=== PATIENT | male | born 1960 | race American Indian/Alaskan Native ===

== ENCOUNTER 2019-02-06 12:01 | Inpatient (IN) | payer MEDICAID ==
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
[2019-02-06] MEDS ORDERED: NORMODYNE IV ONE (12:30)
--- NOTE | 2019-02-06 12:54 | Cat Scan Report ---
EXAM: CT HEAD/BRAIN WO CON HISTORY: neuro deficits <6hrs or sx present upon awakening TECHNIQUE: Spiral axial CT images are obtained through the brain without the administration of intra venous contrast. CT DOSE LENGTH PRODUCT: 920.5 mGycm COMPARISON: None available. FINDINGS: There is a large chronic left anterior frontal lobe parenchymal infarction in the relatively small ch ronic right anterior frontal lobe parenchymal infarction. There is atherosclerotic disease of the car otid siphons. There are parenchymal lucencies within the white matter tracks of the centrum semiovale, consistent w ith chronic sequela of atherosclerotic microvascular ischemic disease. There is diffuse cerebral cortical atrophy. The centrum semiovale, basal ganglia, cerebellum, and bra instem are otherwise grossly unremarkable for a noncontrast CT scan. There is no acute intracranial hemorrhage, gross acute infarction, mass lesion, midline shift, or hydrocephalus seen. No extra-axia l mass or abnormal fluid collection noted. The calvarium is intact. The partially imaged paranasal sinuses, middle ear cavities and mastoid air cells are clear. IMPRESSION: 1. Chronic ischemic disease throughout the centrum semiovale, but no discernible acute infarction se en. Consider followup MRI with diffusion-weighted imaging to rule out occult acute infarction if clin ically warranted. 2. Atherosclerotic disease of the carotid siphons. 3. No skull fracture, intracranial hemorrhage, mass lesion, midline shift, or hydrocephalus seen. This document is electronically signed by Edilma Gutierres MD., February 06 2019 12:52:32 PM ET
[2019-02-06 13:51] LABS: Basophils % (Auto) 0.2 % (0.0-1.8); Hematocrit 45.7 % (35.5-45.6); Hemoglobin 15.5 gm/dl (11.8-15.2); Lymphocytes # (Auto) 1.6 K/mm3 (1.2-5.4); Lymphocytes % (Auto) 10.7 % (13.4-35.0); Mean Corpuscular HGB Conc 34 % (32-34); Mean Corpuscular Volume 89 fl (84-94); Monocytes # (Auto) 0.9 K/mm3 (0.0-0.8); Monocytes % (Auto) 5.7 % (0.0-7.3); Platelet Count 308 K/mm3 (140-440); Red Blood Count 5.17 M/mm3 (3.65-5.03); Red Cell Distribution Width 14.2 % (13.2-15.2)
[2019-02-06 13:58] LABS: INR 1.04 (0.87-1.13)
[2019-02-06 13:59] LABS: Partial Thromboplastin Time 31.6 Sec. (24.2-36.6); Thrombin Time 15.6 Sec. (15.1-19.6)
[2019-02-06 14:08] LABS: BUN/Creatinine Ratio 13; Blood Urea Nitrogen 12 mg/dL (9-20); Calcium 9.7 mg/dL (8.4-10.2); Hemolysis Index 11
[2019-02-06] MEDS ORDERED: APRESOLINE IV ONE (14:19)
[2019-02-06] MEDS ORDERED: TYLENOL PO ONE (15:26)
[2019-02-06] MEDS ORDERED: APRESOLINE IV PRN (15:41)
[2019-02-06] MEDS ORDERED: SODIUM CHLORIDE FLUSH SYRINGE 10 ML IV PRN (18:39)
[2019-02-06] MEDS ORDERED: ZOFRAN IV PRN (18:39)
[2019-02-06] MEDS ORDERED: TYLENOL PO PRN (18:39)
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
[2019-02-06] MEDS ORDERED: MORPHINE IV PRN (18:40)
[2019-02-06] MEDS ORDERED: IBUPROFEN PO PRN (18:40)
[2019-02-06] MEDS ORDERED: NACL 0.45% 1000 ML 1,000 ML IV SCH (19:00)
[2019-02-06] MEDS: COZAAR PO SCH (20:09)
[2019-02-06] MEDS: SODIUM CHLORIDE FLUSH SYRINGE 10 ML IV SCH (21:56)
[2019-02-06] MEDS: KEPPRA 750 MG in D5W 100 ML IV SCH (21:56)
[2019-02-06] MEDS: PEPCID PO SCH (22:00)
[2019-02-06] MEDS ORDERED: NACL 0.45% 500 ML IV SCH (23:00)
[2019-02-07] MEDS: COREG PO SCH ×3 (00:32→22:55)
[2019-02-07 06:22] LABS: Basophils % (Auto) 0.4 % (0.0-1.8); Eosinophils % (Auto) 0.2 % (0.0-4.3); Hematocrit 42.3 % (35.5-45.6); Hemoglobin 14.3 gm/dl (11.8-15.2); Lymphocytes # (Auto) 1.2 K/mm3 (1.2-5.4); Lymphocytes % (Auto) 11.9 % (13.4-35.0); Mean Corpuscular HGB Conc 34 % (32-34); Mean Corpuscular Volume 89 fl (84-94); Monocytes # (Auto) 0.9 K/mm3 (0.0-0.8); Monocytes % (Auto) 9.1 % (0.0-7.3); Platelet Count 269 K/mm3 (140-440); Red Blood Count 4.74 M/mm3 (3.65-5.03); Red Cell Distribution Width 14.5 % (13.2-15.2)
[2019-02-07 06:44] LABS: Alanine Aminotransferase 18 units/L (7-56); Albumin 4.1 g/dL (3.9-5); BUN/Creatinine Ratio 10; Blood Urea Nitrogen 14 mg/dL (9-20); Calcium 9.2 mg/dL (8.4-10.2); Hemolysis Index 6
[2019-02-07] MEDS: KEPPRA 750 MG in D5W 100 ML IV SCH (09:06)
[2019-02-07] MEDS ORDERED: NORVASC PO SCH (10:00)
[2019-02-07] MEDS: COZAAR PO SCH (10:21)
[2019-02-07] MEDS: PEPCID PO SCH ×2 (10:21→22:57)
[2019-02-07] MEDS: HABITROL TD SCH (10:22)
[2019-02-07] MEDS: SODIUM CHLORIDE FLUSH SYRINGE 10 ML IV SCH ×2 (10:23→22:57)
[2019-02-07] MEDS ORDERED: AFLURIA QUAD 2018-2019 SYRINGE IM ONE (12:00)
--- NOTE | 2019-02-07 14:47 | Progress Note ---
Assessment and Plan Assessment and plan: Encephalopathy with confusion May be secondary to hypertensive encephalopathy neuro following Hypertensive encephalopathy BP 196/96 on admission neuro checks Q4h Hypertensive emergency Now on Norvasc, Coreg, hydralazine, Cozaar Monitor BP Seizure disorder. resume kegurdeepra No witnessed seizures Neurology following Medical non-compliance He has not been taking his medications Leukocytosis,resolved Will check UA, Urine Culture, blood culture, Chest x ray Glucoma Resume home med Full code status Discussed with family at bedside. History Interval history: Altered mental status confusion Hospitalist Physical - Physical exam Narrative exam: Gen: Not in acute distress, lying in bed, HEENT:Normocephalic, atraumatic Neck: supple, no JVD Heart: S1 and S2 reg, no murmurs, rubs or gallop Lungs: Clear, no crackles, no wheeze Abd: soft, non tender, non distended, normal BS Ext: No edema, no clubbing, no cyanosis, Neuro: Awake, alert, confused, moves all ext, non focal - Constitutional Vitals: Temp Pulse Resp BP Pulse Ox 98.5 F 75 18 125/74 95 02/07/19 07:41 02/07/19 10:22 02/07/19 07:41 02/07/19 10:22 02/07/19 11:01 General appearance: Present: no acute distress Results - Labs CBC & Chem 7: 02/07/19 05:31 02/07/19 05:31 Labs: Laboratory Last Values WBC 9.8 K/mm3 (4.5-11.0) 02/07/19 05:31 RBC 4.74 M/mm3 (3.65-5.03) 02/07/19 05:31 Hgb 14.3 gm/dl (11.8-15.2) 02/07/19 05:31 Hct 42.3 % (35.5-45.6) 02/07/19 05:31 MCV 89 fl (84-94) 02/07/19 05:31 MCH 30 pg (28-32) 02/07/19 05:31 MCHC 34 % (32-34) 02/07/19 05:31 RDW 14.5 % (13.2-15.2) 02/07/19 05:31 Plt Count 269 K/mm3 (140-440) 02/07/19 05:31 Lymph % (Auto) 11.9 % (13.4-35.0) L 02/07/19 05:31 [place] % (Auto) 9.1 % (0.0-7.3) H 02/07/19 05:31 Eos % (Auto) 0.2 % (0.0-4.3) 02/07/19 05:31 Baso % (Auto) 0.4 % (0.0-1.8) 02/07/19 05:31 Lymph # 1.2 K/mm3 (1.2-5.4) 02/07/19 05:31 [place] # 0.9 K/mm3 (0.0-0.8) H 02/07/19 05:31 Eos # 0.0 K/mm3 (0.0-0.4) 02/07/19 05:31 Baso # 0.0 K/mm3 (0.0-0.1) 02/07/19 05:31 Seg Neutrophils % 78.4 % (40.0-70.0) H 02/07/19 05:31 Seg Neutrophils # 7.7 K/mm3 (1.8-7.7) 02/07/19 05:31 PT 14.2 Sec. (12.2-14.9) 02/06/19 13:16 INR 1.04 (0.87-1.13) 02/06/19 13:16 APTT 31.6 Sec. (24.2-36.6) 02/06/19 13:16 15.6 Sec. (15.1-19.6) 02/06/19 13:16 Sodium 140 mmol/L (137-145) 02/07/19 05:31 Potassium 3.8 mmol/L (3.6-5.0) 02/07/19 05:31 Chloride 96.9 mmol/L (98-107) L 02/07/19 05:31 Carbon Dioxide 28 mmol/L (22-30) 02/07/19 05:31 19 mmol/L 02/07/19 05:31 BUN 14 mg/dL (9-20) 02/07/19 05:31 1.4 mg/dL (0.8-1.5) D 02/07/19 05:31 Estimated GFR > 60 ml/min 02/07/19 05:31 10 % 02/07/19 05:31 Glucose 103 mg/dL (75-100) H 02/07/19 05:31 POC Glucose 91 (70-105) 02/07/19 08:34 5.5 % (4-6) 02/06/19 13:16 Calcium 9.2 mg/dL (8.4-10.2) 02/07/19 05:31 0.70 mg/dL (0.1-1.2) 02/07/19 05:31 AST 64 units/L (5-40) H 02/07/19 05:31 ALT 18 units/L (7-56) 02/07/19 05:31 84 units/L (35-129) 02/07/19 05:31 0.019 ng/mL (0.00-0.029) 02/06/19 13:16 6.6 g/dL (6.3-8.2) 02/07/19 05:31 4.1 g/dL (3.9-5) 02/07/19 05:31 1.6 % 02/07/19 05:31 Active Medications - Current Medications Current Medications: Generic Name Dose Route Start Last Admin Trade Name Freq PRN Reason Stop Dose Admin Acetaminophen 650 mg 02/06/19 18:39 Tylenol PO Q4H PRN Pain MILD(1-3)/Fever >100.5/KAM Amlodipine Besylate 10 mg 02/07/19 10:00 02/07/19 10:22 Norvasc PO 10 mg QDAY MARYELLEN Administration Carvedilol 12.5 mg 02/06/19 23:00 02/07/19 10:22 Coreg PO 12.5 mg BID MARYELLEN Administration Famotidine 20 mg 02/06/19 22:00 02/07/19 10:21 Pepcid PO 20 mg BID MARYELLEN Administration Hydralazine HCl 10 mg 02/06/19 15:41 02/06/19 20:10 Apresoline IV 10 mg Q3H PRN Administration systolic over 160/100 Levetiracetam 750 mg/ Dextrose 107.5 mls @ 400 mls/hr 02/06/19 20:00 02/07/19 09:06 IV 400 mls/hr Q12H MARYELLEN Administration Sodium Chloride 500 mls @ 50 mls/hr 02/06/19 23:00 Nacl 0.45% IV DIRECT MARYELLEN Ibuprofen 600 mg 02/06/19 18:40 Ibuprofen PO Q6H PRN Pain, Mild (1-3) Losartan Potassium 100 mg 02/06/19 19:00 02/07/19 10:21 Cozaar PO 100 mg QDAY MARYELLEN Administration Morphine Sulfate 2 mg 02/06/19 18:40 Morphine IV Q4H PRN Pain, Moderate (4-6) Nicotine 14 mg 02/07/19 10:00 02/07/19 10:22 Habitrol TD 14 mg QDAY MARYELLEN Administration Ondansetron HCl 4 mg 02/06/19 18:39 Zofran IV Q8H PRN Nausea And Vomiting Sodium Chloride 10 ml 02/06/19 22:00 02/07/19 10:23 Sodium Chloride Flush Syringe 10 Ml IV 10 ml BID MARYELLEN Administration Sodium Chloride 10 ml 02/06/19 18:39 Sodium Chloride Flush Syringe 10 Ml IV PRN PRN LINE FLUSH
--- NOTE | 2019-02-07 15:58 | Magnetic Resonance Report ---
MRI BRAIN WITHOUT CONTRAST: 02/06/19 15:12:00 CLINICAL: Altered mental status. COMPARISON: CT head 02/06/19 TECHNIQUE: Axial diffusion, T1, T2, gradient echo T2*, coronal and axial FLAIR and sagittal T1 sequences on a 1.5 [place] magnet. FINDINGS: Global cortical atrophy with enlargement of sulci and ventricles. Bilateral frontal and temporal lobe sulci are enlarged to a greater degree. No restricted diffusion. Focal left frontal lobe encephalomalacia measures 1.5 x 1.5 cm. Hemosiderin deposition at the margins of the encephalomalacia and along the dura of the left frontal lobe are evident on the gradient echo sequence. No chronic microbleeds. No acute or subacute hemorrhage. No mass or mass effect. No edema or extra-axial collection. Normal pituitary and optic chiasm. The brainstem is normal. 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 There is also evidence of left cerebellar atrophy. The major vascular flow voids are intact. However, no right vertebral artery flow-void. Mild right ethmoid sinusitis. The orbits, and soft tissues are normal. Normal calvarium and skull base. IMPRESSION: 1. No evidence of acute/subacute infarct or hemorrhage. 2. Global cortical atrophy with more pronounced atrophy of the frontal and temporal lobes. 3. Left frontal lobe encephalomalacia with hemosiderin at its margin suggests a remote hemorrhage. 4. 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 5. A chronic left cerebellar infarct.
--- NOTE | 2019-02-07 16:01 | Magnetic Resonance Report ---
MRA HEAD WITHOUT CONTRAST: 02/06/19 15:12:00 CLINICAL: Altered metal status. TECHNIQUE: Axial 3-D [id number] MR angiography of the skull valley of [place] with review of axial source images. FINDINGS: Intact skull [place] of [place] with no aneurysm, high-grade stenosis or occlusion of the ICAs, ACAs, MCAs or leather shaver. Intact anterior communicating and right posterior communicating arteries. Chronic occlusion of the right vertebral artery. IMPRESSION: Chronic occlusion of the right vertebral artery and otherwise normal study.
--- NOTE | 2019-02-07 17:11 | Consultation ---
Medications and Allergies Allergies Allergy/AdvReac Type Severity Reaction Status Date / Time No Known Allergies Allergy Unverified 03/05/15 10:54 Home Medications Medication Instructions Recorded Confirmed Last Taken Type Travoprost (Benzalkonium) 2.5 ml OP 03/05/15 02/07/19 03/05/15 23:30 History [Travoprost 0.004% Eye Drop] levETIRAcetam [Keppra] 1,000 mg PO BID 03/05/15 02/07/19 03/06/15 06:00 History Cyproheptadine [Periactin] 4 mg PO DAILY 02/07/19 02/07/19 Unknown History Folic Acid [Folvite] 1 mg PO QDAY 02/07/19 02/07/19 Unknown History Phenytoin Sodium Extended 300 mg PO BID 02/07/19 02/07/19 Unknown History Pravastatin [Pravachol] 40 mg PO QHS 02/07/19 02/07/19 Unknown History Sertraline [Zoloft] 50 mg PO QHS 02/07/19 02/07/19 Unknown History amLODIPine [Norvasc] 10 mg PO DAILY 02/07/19 02/07/19 Unknown History Active Meds: Active Medications Acetaminophen (Tylenol) 650 mg PO Q4H PRN PRN Reason: Pain MILD(1-3)/Fever >100.5/KAM Amlodipine Besylate (Norvasc) 10 mg PO QDAY [facility] Last Admin: 02/07/19 10:22 Dose: 10 mg Documented by: Carvedilol (Coreg) 12.5 mg PO BID [facility] Last Admin: 02/07/19 10:22 Dose: 12.5 mg Documented by: Famotidine (Pepcid) 20 mg PO BID [facility] Last Admin: 02/07/19 10:21 Dose: 20 mg Documented by: Hydralazine HCl (Apresoline) 10 mg IV Q3H PRN PRN Reason: systolic over 160/100 Last Admin: 02/06/19 20:10 Dose: 10 mg Documented by: Levetiracetam 750 mg/ Dextrose 107.5 mls @ 400 mls/hr IV Q12H [facility] Last Admin: 02/07/19 09:06 Dose: 400 mls/hr Documented by: Sodium Chloride (Nacl 0.45%) 500 mls @ 50 mls/hr IV DIRECT [facility] Ibuprofen (Ibuprofen) 600 mg PO Q6H PRN PRN Reason: Pain, Mild (1-3) Losartan Potassium (Cozaar) 100 mg PO QDAY [facility] Last Admin: 02/07/19 10:21 Dose: 100 mg Documented by: Morphine Sulfate (Morphine) 2 mg IV Q4H PRN PRN Reason: Pain, Moderate (4-6) Nicotine (Habitrol) 14 mg TD QDAY [facility] Last Admin: 02/07/19 10:22 Dose: 14 mg Documented by: Ondansetron HCl (Zofran) 4 mg IV Q8H PRN PRN Reason: Nausea And Vomiting Sodium Chloride (Sodium Chloride Flush Syringe 10 Ml) 10 ml IV BID [facility] Last Admin: 02/07/19 10:23 Dose: 10 ml Documented by: Sodium Chloride (Sodium Chloride Flush Syringe 10 Ml) 10 ml IV PRN PRN PRN Reason: LINE FLUSH Physical Examination - Vital Signs Vital Signs: Vital Signs Temp Pulse Resp BP Pulse Ox 98.7 F 103 H 18 223/122 99 02/06/19 12:05 02/06/19 12:05 02/06/19 12:05 02/06/19 12:05 02/06/19 12:05 Results - Laboratory Findings CBC and BMP: 02/07/19 05:31 02/07/19 05:31 Abnormal Lab Findings: Abnormal Labs 02/06/19 02/06/19 02/06/19 12:19 13:11 13:16 WBC 14.8 H RBC 5.17 H Hgb 15.5 H Hct 45.7 H Lymph % (Auto) 10.7 L [place] % (Auto) [place] # 0.9 H Seg Neutrophils % 83.4 H Seg Neutrophils # 12.4 H Chloride Glucose POC Glucose 115 H 132 H AST 02/06/19 02/07/19 02/07/19 13:16 05:31 05:31 WBC RBC Hgb Hct Lymph % (Auto) 11.9 L [place] % (Auto) 9.1 H [place] # 0.9 H Seg Neutrophils % 78.4 H Seg Neutrophils # Chloride 94.3 L 96.9 L Glucose 104 H 103 H POC Glucose AST 64 H Assessment and Plan The patient is a 58-year-old gentleman with history of seizures, dementia and chronic alcohol abuse for a long time who lives with his sister. The patient was brought in to the hospital on 02/06/2019 because of confusion which started about a day before. Patient sister stated that wide-based gait when the alcoholics have. Difficulty communicating with her and follows saying the same thing again and again. Patient quit drinking about 5 years ago after heavy drinking for 30 years and also has a history of seizures and has been seizure- free for a few years and has not been taking medication for seizures. Patient's sister states that he does not want to go to doctors, so follow up evaluation has been very difficult. Patient is not reported to have any seizure activityprior to this admission, any specific weakness on the right side or left-sided or any facial asymmetry. Workup after admission shows evidence of infection with a WBC count being 17 and evidence of increased neutrophil as well suggesting ongoing infection. After admission patient's blood pressure was found to be 223/120. Physical examination. Patient is alert and awake. Follows, and at times. Neck is I contact. Answers questions appropriately at times and at times sees the same thing again and again answers are not appropriate to the questions. However he knows where he is he stated that this woman was in the hospital. Patient is [place]-speaking gentleman and does not understand Albanian. Communication the patient was done so his sister who speaks Albanian very well. Patient has perseveration, Heart. Normal rate and rhythm. Carotids. Both palpable, no bruit. Cranial nerves. All cranial nerves are within normal limit. Extraocular movements are intact. Face symmetric to light in accommodation normal facial sensation and no facial asymmetry was noted. Patient is eating food and has no difficulty swallowing. Motor no asymmetry of strength, further testing was difficult due to lack of cooperation from the patient. Reflexes. Patient had an generalized decreased reflexes in all 4 extremities with bilateral downgoing toes. Sensory. He sensory examination seemed to be grossly within normal(examination. Gait. Gait couldn't be tested. However from the description of his gait from his sister it seemed that he has wide based gait. Impression. #1 acute confusional state in a patient date alcoholic dementia seems to relieve from hypertensive encephalopathy and ongoing infection. Recommendation #1 patient should be placed on thiamine 100 mg by mouth daily along with other B vitamins. #2 patient should be started on antibiotic and look for the site of infection. #3. continue Keppra 750 mg twice a day.
[2019-02-07] MEDS ORDERED: FOLVITE PO SCH (18:00)
[2019-02-07] MEDS: FOLVITE PO SCH (18:35)
[2019-02-07] MEDS: LATANOPROST 0.005% OU SCH (19:07)
[2019-02-07 20:05] LABS: Bilirubin,Urine NEG (Negative); Blood,Urine NEG (Negative); Color,Urine Yellow (Yellow); Protein,Urine <15 mg/dL mg/dL (Negative); Urobilinogen,Urine < 2.0 mg/dL (<2.0)
[2019-02-07] MEDS ORDERED: PHENYTOIN SODIUM 300 MG PO SCH (22:00)
[2019-02-07] MEDS ORDERED: TRAVOPROST OP SCH (22:00)
[2019-02-07] MEDS: KEPPRA PO SCH (22:55)
[2019-02-07] MEDS: DILANTIN PO SCH (22:57)
[2019-02-07] MEDS: PRAVACHOL PO SCH (22:57)
[2019-02-08 06:42] LABS: Hematocrit 44.8 % (35.5-45.6); Hemoglobin 15.1 gm/dl (11.8-15.2); Mean Corpuscular HGB Conc 34 % (32-34); Mean Corpuscular Volume 89 fl (84-94); Platelet Count 290 K/mm3 (140-440); Red Blood Count 5.02 M/mm3 (3.65-5.03); Red Cell Distribution Width 14.6 % (13.2-15.2)
[2019-02-08 07:05] LABS: BUN/Creatinine Ratio 15; Blood Urea Nitrogen 19 mg/dL (9-20); Calcium 9.4 mg/dL (8.4-10.2); Hemolysis Index 11
--- NOTE | 2019-02-08 08:58 | XRay Report ---
ROUTINE CHEST, TWO VIEWS: HISTORY: Leukocytosis. The trachea, heart, mediastinal contour, lung gregory and bony thorax are unremarkable. IMPRESSION: No acute cardiopulmonary process is identified.
[2019-02-08] MEDS: COZAAR PO SCH (10:16)
[2019-02-08] MEDS: PEPCID PO SCH (10:16)
[2019-02-08] MEDS: KEPPRA PO SCH (10:17)
[2019-02-08] MEDS: FOLVITE PO SCH (10:17)
[2019-02-08] MEDS: DILANTIN PO SCH (10:17)
[2019-02-08] MEDS: COREG PO SCH (10:17)
[2019-02-08] MEDS: NORVASC PO SCH (10:17)
[2019-02-08] MEDS: LOVENOX SUB-Q SCH (10:18)
[2019-02-08] MEDS: HABITROL TD SCH (10:18)
[2019-02-08] MEDS: SODIUM CHLORIDE FLUSH SYRINGE 10 ML IV SCH (10:19)
--- NOTE | 2019-02-08 11:38 | Progress Note ---
Assessment and Plan Assessment and plan: Acute encephalopathy. Etiology appears to be multifactorial secondary to hypertension with underlying alcoholic dementia. Neurology consult. Toxic causes ruled out with chest x-ray and UA negative. Leukocytosis resolved. Continue thiamine per neurology. Check ammonia levels. Accelerated hypertension. BP 196/96 on admission Now on Norvasc, Coreg, hydralazine, Cozaar Monitor BP neuro checks Q4h Seizure disorder. Continue keppra No witnessed seizures Neurology following Medical non-compliance He has not been taking his medications Deconditioning. PT evaluation pending. History Interval history: The patient is a 58-year-old gentleman with history of seizures, dementia and chronic alcohol abuse who was admitted with diagnosis of encephalopathy. P atient currently appears to be improving back to baseline. Hospitalist Physical - Constitutional Vitals: Temp Pulse Resp BP Pulse Ox 97.8 F 64 18 151/85 97 02/08/19 09:04 02/08/19 10:17 02/08/19 09:04 02/08/19 10:17 02/08/19 09:04 General appearance: Present: no acute distress - EENT Eyes: Present: PERRL, EOM intact ENT: hearing intact, clear oral mucosa, dentition normal - Neck Neck: Present: supple, normal ROM - Respiratory Respiratory effort: normal Respiratory: bilateral: CTA - Cardiovascular Rhythm: regular Heart Sounds: Present: S1 & S2. Absent: gallop, rub - Extremities Extremities: no ischemia, No edema, Full ROM - Abdominal General gastrointestinal: soft, non-tender, non-distended, normal bowel sounds - Integumentary Integumentary: Present: clear, warm, dry - Neurologic Neurologic: CNII-XII intact, moves all extremities Results - Labs CBC & Chem 7: 02/08/19 05:56 02/08/19 05:56 Labs: Laboratory Last Values WBC 9.2 K/mm3 (4.5-11.0) 02/08/19 05:56 RBC 5.02 M/mm3 (3.65-5.03) 02/08/19 05:56 Hgb 15.1 gm/dl (11.8-15.2) 02/08/19 05:56 Hct 44.8 % (35.5-45.6) 02/08/19 05:56 MCV 89 fl (84-94) 02/08/19 05:56 MCH 30 pg (28-32) 02/08/19 05:56 MCHC 34 % (32-34) 02/08/19 05:56 RDW 14.6 % (13.2-15.2) 02/08/19 05:56 Plt Count 290 K/mm3 (140-440) 02/08/19 05:56 Lymph % (Auto) 11.9 % (13.4-35.0) L 02/07/19 05:31 [place] % (Auto) 9.1 % (0.0-7.3) H 02/07/19 05:31 Eos % (Auto) 0.2 % (0.0-4.3) 02/07/19 05:31 Baso % (Auto) 0.4 % (0.0-1.8) 02/07/19 05:31 Lymph # 1.2 K/mm3 (1.2-5.4) 02/07/19 05:31 [place] # 0.9 K/mm3 (0.0-0.8) H 02/07/19 05:31 Eos # 0.0 K/mm3 (0.0-0.4) 02/07/19 05:31 Baso # 0.0 K/mm3 (0.0-0.1) 02/07/19 05:31 Seg Neutrophils % 78.4 % (40.0-70.0) H 02/07/19 05:31 Seg Neutrophils # 7.7 K/mm3 (1.8-7.7) 02/07/19 05:31 PT 14.2 Sec. (12.2-14.9) 02/06/19 13:16 INR 1.04 (0.87-1.13) 02/06/19 13:16 APTT 31.6 Sec. (24.2-36.6) 02/06/19 13:16 15.6 Sec. (15.1-19.6) 02/06/19 13:16 Sodium 141 mmol/L (137-145) 02/08/19 05:56 Potassium 3.8 mmol/L (3.6-5.0) 02/08/19 05:56 Chloride 100.3 mmol/L (98-107) 02/08/19 05:56 Carbon Dioxide 25 mmol/L (22-30) 02/08/19 05:56 20 mmol/L 02/08/19 05:56 BUN 19 mg/dL (9-20) 02/08/19 05:56 1.3 mg/dL (0.8-1.5) 02/08/19 05:56 Estimated GFR > 60 ml/min 02/08/19 05:56 15 % 02/08/19 05:56 Glucose 93 mg/dL (75-100) 02/08/19 05:56 POC Glucose 145 (70-105) H 02/07/19 16:57 5.5 % (4-6) 02/06/19 13:16 Calcium 9.4 mg/dL (8.4-10.2) 02/08/19 05:56 0.70 mg/dL (0.1-1.2) 02/07/19 05:31 AST 64 units/L (5-40) H 02/07/19 05:31 ALT 18 units/L (7-56) 02/07/19 05:31 84 units/L (35-129) 02/07/19 05:31 0.019 ng/mL (0.00-0.029) 02/06/19 13:16 6.6 g/dL (6.3-8.2) 02/07/19 05:31 4.1 g/dL (3.9-5) 02/07/19 05:31 1.6 % 02/07/19 05:31 Yellow (Yellow) 02/07/19 17:14 Clear (Clear) 02/07/19 17:14 6.0 (5.0-7.0) 02/07/19 17:14 Ur Specific [place] 1.009 (1.003-1.030) 02/07/19 17:14 <15 mg/dl mg/dL (Negative) 02/07/19 17:14 Neg mg/dL (Negative) 02/07/19 17:14 Neg mg/dL (Negative) 02/07/19 17:14 Neg (Negative) 02/07/19 17:14 Neg (Negative) 02/07/19 17:14 Neg (Negative) 02/07/19 17:14 < 2.0 mg/dL (<2.0) 02/07/19 17:14 Ur Leukocyte Esterase Neg (Negative) 02/07/19 17:14 1.0 /HPF (0.0-6.0) 02/07/19 17:14 2.0 /HPF (0.0-6.0) 02/07/19 17:14 Active Medications - Current Medications Current Medications: Generic Name Dose Route Start Last Admin Trade Name Freq PRN Reason Stop Dose Admin Acetaminophen 650 mg 02/06/19 18:39 Tylenol PO Q4H PRN Pain MILD(1-3)/Fever >100.5/KAM Amlodipine Besylate 10 mg 02/08/19 10:00 02/08/19 10:17 Norvasc PO 10 mg DAILY MARYELLEN Administration Carvedilol 12.5 mg 02/06/19 23:00 02/08/19 10:17 Coreg PO 12.5 mg BID MARYELLEN Administration Enoxaparin Sodium 40 mg 02/08/19 10:00 02/08/19 10:18 Lovenox SUB-Q 40 mg DAILY MARYELLEN Administration Famotidine 20 mg 02/06/19 22:00 02/08/19 10:16 Pepcid PO 20 mg BID MARYELLEN Administration Folic Acid 1 mg 02/07/19 17:30 02/08/19 10:17 Folvite PO 1 mg DAILY MARYELLEN Administration Hydralazine HCl 10 mg 02/06/19 15:41 02/06/19 20:10 Apresoline IV 10 mg Q3H PRN Administration systolic over 160/100 Sodium Chloride 500 mls @ 50 mls/hr 02/06/19 23:00 Nacl 0.45% IV DIRECT MARYELLEN Ibuprofen 600 mg 02/06/19 18:40 Ibuprofen PO Q6H PRN Pain, Mild (1-3) Latanoprost 1 drops 02/07/19 18:00 02/07/19 19:07 Latanoprost 0.005% OU 1 drops QPM MARYELLEN Administration Levetiracetam 1,000 mg 02/07/19 22:00 02/08/19 10:17 Keppra PO 1,000 mg BID MARYELLEN Administration Losartan Potassium 100 mg 02/06/19 19:00 02/08/19 10:16 Cozaar PO 100 mg QDAY MARYELLEN Administration Morphine Sulfate 2 mg 02/06/19 18:40 Morphine IV Q4H PRN Pain, Moderate (4-6) Nicotine 14 mg 02/07/19 10:00 02/08/19 10:18 Habitrol TD Not Given QDAY MARYELLEN Ondansetron HCl 4 mg 02/06/19 18:39 Zofran IV Q8H PRN Nausea And Vomiting Phenytoin 300 mg 02/07/19 22:00 02/08/19 10:17 Dilantin PO 300 mg BID MARYELLEN Administration Pravastatin Sodium 40 mg 02/07/19 22:00 02/07/19 22:57 Pravachol PO 40 mg QHS MARYELLEN Administration Sodium Chloride 10 ml 02/06/19 22:00 02/08/19 10:19 Sodium Chloride Flush Syringe 10 Ml IV 10 ml BID MARYELLEN Administration Sodium Chloride 10 ml 02/06/19 18:39 Sodium Chloride Flush Syringe 10 Ml IV PRN PRN LINE FLUSH
[2019-02-08] MEDS: LATANOPROST 0.005% OU SCH (17:38)
[2019-02-09] MEDS: PEPCID PO SCH ×2 (01:13→10:10)
[2019-02-09] MEDS: KEPPRA PO SCH ×2 (01:13→10:10)
[2019-02-09] MEDS: COREG PO SCH ×2 (01:13→10:10)
[2019-02-09] MEDS: PRAVACHOL PO SCH (01:13)
[2019-02-09] MEDS: DILANTIN PO SCH ×2 (01:13→10:10)
[2019-02-09] MEDS: SODIUM CHLORIDE FLUSH SYRINGE 10 ML IV SCH (01:13)
[2019-02-09 07:50] VITALS: BP 157/79
--- NOTE | 2019-02-09 08:29 | Discharge Summary ---
Providers - Providers Date of Admission: 02/06/19 15:12 Date of discharge: 02/09/19 Attending physician: CHELSEA GALAN 02/06/19 18:40 Consult to Physician [CONS] Routine Comment: Consulting Provider: CHANDA HUANG Physician Instructions: Reason For Exam: Seizure disorder 02/08/19 10:01 Occupational Therapy Evaluate and Treat [CONS] Urgent Comment: Reason For Exam: weakness Physical Therapy Evaluation and Treat [CONS] Routine Comment: Reason For Exam: weakness Primary care physician: EMILI EVANS Hospitalization Reason for admission: encephalopathy Condition: Stable Hospital course: The patient is a 58-year-old gentleman with history of seizures, dementia and chronic alcohol abuse who was admitted with diagnosis of encephalopathy. Etiology appeared to be multifactorial secondary to hypertensive encephalopathy with underlying alcoholic dementia. Patient was noted to have accelerated hypertension on admission with a blood pressure of 196/96. Patient's medications were adjusted and blood pressure stabilized. Neurology consulted and believed that potentially toxic causes may be additional etiology but infection was ruled out with chest x-ray and UA negative as well as blood cultures negative. Leukocytosis seen on admission quickly resolved. Patient currently appears to be improved back to baseline. Patient had no witnessed seizures and will be maintained on Keppra at discharge. Dedicated discharge time 32 minutes. Disposition: - TO HOME OR SELFCARE Time spent for discharge: 32 - Discharge Diagnoses (1) Alcoholic dementia Status: Acute (2) Hypertensive encephalopathy Status: Acute (3) Leukocytosis Status: Acute (4) Seizure disorder Status: Chronic Core Measure Documentation - Palliative Care Palliative Care/ Comfort Measures: Not Applicable - Core Measures Any of the following diagnoses?: none Exam - Constitutional Vitals: Temp Pulse Resp BP Pulse Ox 97.7 F 61 16 157/79 93 02/09/19 07:47 02/09/19 07:47 02/09/19 07:47 02/09/19 07:47 02/09/19 07:47 General appearance: Present: no acute distress, well-nourished - EENT Eyes: Present: PERRL ENT: hearing intact, clear oral mucosa - Neck Neck: Present: supple, normal ROM - Respiratory Respiratory effort: normal Respiratory: bilateral: CTA - Cardiovascular Heart Sounds: Present: S1 & S2. Absent: rub, click - Extremities Extremities: pulses symmetrical, No edema Peripheral Pulses: within normal limits - Abdominal General gastrointestinal: Present: soft, non-tender, non-distended, normal bowel sounds Male genitourinary: Present: normal - Integumentary Integumentary: Present: clear, warm, dry - Musculoskeletal Musculoskeletal: gait normal, strength equal bilaterally - Psychiatric Psychiatric: appropriate mood/affect, intact judgment & insight - Neurologic Neurologic: CNII-XII intact, moves all extremities Plan Activity: advance as tolerated Weight Bearing Status: Weight Bear as Tolerated Diet: regular Follow up with: EMILI EVANS MD [Primary Care Provider] - 7 Days CHANDA HUANG MD [Staff Physician] - 7 Days Prescriptions: Carvedilol [Coreg] 12.5 mg PO BID #60 tablet Losartan [Cozaar] 100 mg PO QDAY #30 tablet Phenytoin [Dilantin] 300 mg PO BID #60 capsule.er Folic Acid [Folvite] 1 mg PO DAILY #30 tablet levETIRAcetam [Keppra TAB] 1,000 mg PO BID #60 tablet amLODIPine [Norvasc] 10 mg PO DAILY #30 tablet Phenytoin Sodium Extended 300 mg PO BID #60 capsule Pravastatin [Pravachol] 40 mg PO QHS #30 tablet Pravastatin [Pravachol] 40 mg PO QHS #30 tablet Thiamine [Vitamin B-1] 100 mg PO QDAY #30 tablet Sertraline [Zoloft] 50 mg PO QHS #60 tablet
[2019-02-09] MEDS: LOVENOX SUB-Q SCH (10:10)
[2019-02-09] MEDS: COZAAR PO SCH (10:10)
[2019-02-09] MEDS: NORVASC PO SCH (10:10)
[2019-02-09] MEDS: HABITROL TD SCH (10:11)
[2019-02-09] MEDS: FOLVITE PO SCH (10:11)
== END 2019-02-09 11:56 | disposition home or self-care (01) | DRG 78 ==
LOC: ED 12:01 → 4A 15:12
PROVIDERS: ADMIT Internal Medicine; ATTEND Hospitalist
DX: I67.4 Hypertensive encephalopathy (principal); F10.239 Alcohol dependence with withdrawal, unspecified; G40.802 Other epilepsy, not intractable, without status epilepticus; F10.27 Alcohol dependence with alcohol-induced persisting dementia; I16.1 Hypertensive emergency; Y90.9 Presence of alcohol in blood, level not specified; F17.200 Nicotine dependence, unspecified, uncomplicated; Z89.212 Acquired absence of left upper limb below elbow; H40.9 Unspecified glaucoma; D72.829 Elevated white blood cell count, unspecified; Z91.19 Patient's noncompliance with other medical treatment and regimen
CPT/HCPCS: 36415; 70450; 70544; 70551; 71046; 80048; 80053; 81001; 82140; 82962; 83036; 84484; 85025; 85027; 85610; 85670; 85730; 87040; 87086; 90686; 93005; 93010; 94760; G0378; A9270-GY; J0360; J1650; J1953; J7030

== ENCOUNTER 2019-02-13 10:00 | Inpatient (IN) | payer MEDICAID ==
[2019-02-13 11:10] LABS: Basophils # (Auto) 0.1 K/mm3 (0.0-0.1); Basophils % (Auto) 0.6 % (0.0-1.8); Eosinophils # (Auto) 0.1 K/mm3 (0.0-0.4); Eosinophils % (Auto) 0.7 % (0.0-4.3); Hematocrit 47.3 % (35.5-45.6); Hemoglobin 16.2 gm/dl (11.8-15.2); Lymphocytes # (Auto) 1.9 K/mm3 (1.2-5.4); Lymphocytes % (Auto) 20.1 % (13.4-35.0); Mean Corpuscular HGB Conc 34 % (32-34); Mean Corpuscular Volume 89 fl (84-94); Monocytes # (Auto) 0.7 K/mm3 (0.0-0.8); Platelet Count 355 K/mm3 (140-440); Red Blood Count 5.32 M/mm3 (3.65-5.03); Red Cell Distribution Width 14.1 % (13.2-15.2)
[2019-02-13 11:22] LABS: BUN/Creatinine Ratio 17; Blood Urea Nitrogen 12 mg/dL (9-20); Calcium 9.7 mg/dL (8.4-10.2); Hemolysis Index 31
--- NOTE | 2019-02-13 11:28 | Emergency Department Report ---
HPI - General Chief Complaint: Altered Mental Status Time Seen by Provider: 02/13/19 11:11 - HPI HPI: Room 9 The patient is a 58-year-old male presenting with chief complaint altered mental status. The patient is Italian-speaking only and history is obtained by the help of the patient's sister. The patient's sister states the patient's last normal time was last night when he went to bed at approximately 21:30. This morning the patient awakened at 09:15 reportedly needed assistance walking across the room has the sister states the patient was diffusely weak. She states the patient began complaining of dizziness and then had confused speech. Italian the patient kept repeating "I know and I didn't do it" to all questions asked of him. EMS was called and the patient did not know his own name, where he was or the current year. When asked how he is feeling in the ED the patient replies "vi." When asked other questions the patient continues to answer the first question stating "vi." Location: Mental state Duration: [See above] Quality: Altered Severity: [See above] Modifying factors: [see above] Context: [see above] Mode of transportation: [not driving] ED Past Medical Hx - Past Medical History Previous Medical History?: Yes Hx Hypertension: Yes Hx Seizures: Yes (Last seizure activity was in August 2015.) Additional medical history: ETOH abuse - Surgical History Past Surgical History?: Yes Additional Surgical History: Left arm amputation, Right leg surgery, Glaucoma surgery - Family History Family history: no significant - Social History Smoking Status: Former Smoker (none 4 years) Substance Use Type: None (denies illicit drug use) - Medications Home Medications: Home Medications Medication Instructions Recorded Confirmed Last Taken Type Travoprost (Benzalkonium) 2.5 ml OP HS 03/05/15 02/07/19 03/05/15 23:30 History [Travoprost 0.004% Eye Drop] Cyproheptadine [Periactin] 4 mg PO DAILY 02/07/19 02/07/19 Unknown History Folic Acid [Folvite] 1 mg PO QDAY 02/07/19 02/07/19 Unknown History Carvedilol [Coreg] 12.5 mg PO BID #60 tablet 02/09/19 Unknown Rx Folic Acid [Folvite] 1 mg PO DAILY #30 tablet 02/09/19 Unknown Rx Latanoprost 0.005% 1 drops OU QPM bottle 02/09/19 Unknown Rx Losartan [Cozaar] 100 mg PO QDAY #30 tablet 02/09/19 Unknown Rx Phenytoin Sodium Extended 300 mg PO BID #60 capsule 02/09/19 Unknown Rx Phenytoin [Dilantin] 300 mg PO BID #60 capsule.er 02/09/19 Unknown Rx Pravastatin [Pravachol] 40 mg PO QHS #30 tablet 02/09/19 Unknown Rx Pravastatin [Pravachol] 40 mg PO QHS #30 tablet 02/09/19 Unknown Rx Sertraline [Zoloft] 50 mg PO QHS #60 tablet 02/09/19 Unknown Rx Thiamine [Vitamin B-1] 100 mg PO QDAY #30 tablet 02/09/19 Unknown Rx amLODIPine [Norvasc] 10 mg PO DAILY #30 tablet 02/09/19 Unknown Rx levETIRAcetam [Keppra TAB] 1,000 mg PO BID #60 tablet 02/09/19 Unknown Rx ED Review of Systems ROS: Stated complaint: DIZZINESS/WEAKNESS Other details as noted in HPI Comment: Unobtainable due to pts medical conditions Physical Exam - Physical Exam Vital Signs: Vital Signs 02/13/19 10:44 Pulse Rate 58 L Respiratory 16 Rate Blood Pressure 178/97 [Right] O2 Sat by Pulse 97 Oximetry Physical Exam: GENERAL: The patient is well-developed well-nourished []. [] HEENT: Normocephalic. Atraumatic. Extraocular motions are intact. Patient has moist mucous membranes. NECK: Supple. No meningitic signs are noted. Trachea midline CHEST/LUNGS: Clear to auscultation. There is no respiratory distress noted. HEART/CARDIOVASCULAR: Regular. There is no tachycardia. There is no gallop rub or murmur. ABDOMEN: Abdomen is soft, nontender. Patient has normal bowel sounds. There is no abdominal distention. SKIN: There is no rash. There is no edema. There is no diaphoresis. NEURO: The patient is awake and alert but not oriented to place or year. The patient is cooperative. Cranial nerves II through XII grossly intact. Moves all extremities. The patient has normal speech MUSCULOSKELETAL: There is no evidence of acute injury. NIHSS= 2 LOC a. Alert= 0 Not alert but arousable to minor stimuli=1 Not alert requires repeated or strong stimuli to move= 2 Responds only reflex motor or unresponsive=3 b. asks month and age answers both correctly= 0 answers one correctly= 1 (+)answers neither correctly= 2 Best Gaze normal= 0 abnormal in one or both but forced deviation or total paresis absent= 1 forced deviation or total gaze paresis= 2 Visual no visual loss= 0 partial hemianopia= 1 complete hemianopia= 2 bilateral hemianopia= 3 Facial Palsy normal= 0 minor paralysis= 1 partial paralysis= 2 complete paralysis= 3 Motor Arm no drift= 0 drift before 10 secs but doesnt hit bed= 1 some effort against gravity= 2 no effort against gravity= 3 no movement= 4 Motor leg no drift= 0 drift before 5 secs but doesnt hit bed= 1 drifts to bed before 5 secs= 2 no effort against gravity= 3 no movement= 4 Limb ataxia absent=0 present in one limb= 1 present in two limbs= 2 Sensory normal= 0 mild sensory loss= 1 severe (unaware of being touched)= 2 Best language mild/some loss of fluency= 1 severe= 2 mute= 3 Dysarthria normal= 0 slurs some words= 1 severe/unintelligible= 2 Extinction and Inattention no abnormality= 0 visual, tactile, auditory or personal inattention= 1 profound (doesnt recognize own hand or orients to only one side= 2 ED Course Vital Signs 02/13/19 10:44 Pulse Rate 58 L Respiratory 16 Rate Blood Pressure 178/97 [Right] O2 Sat by Pulse 97 Oximetry ED Medical Decision Making - Lab Data Result diagrams: 02/13/19 11:00 02/13/19 11:00 - EKG Data -: EKG Interpreted by Me EKG shows normal: sinus rhythm Rate: bradycardia (54 bpm) - EKG Data When compared to previous EKG there are: previous EKG unavailable Interpretation: nonspecific ST-T wave bharathi - Differential Diagnosis altered mental status, CVA, ICH, Critical care attestation.: If time is entered above; I have spent that time in minutes in the direct care of this critically ill patient, excluding procedure time. ED Disposition Clinical Impression: Altered mental status Disposition: DC-09 OP ADMIT IP TO THIS HOSP Is pt being admited?: Yes Does the pt Need Aspirin: Yes Condition: Fair Time of Disposition: 14:35 (hospitalist notified (Dr Bingham))
[2019-02-13 11:57] LABS: Creatine Kinase MB 8.7 ng/mL (0.0-4.0)
[2019-02-13 11:58] LABS: Alanine Aminotransferase 24 units/L (7-56); Albumin 4.4 g/dL (3.9-5)
[2019-02-13 12:00] LABS: Bilirubin,Direct < 0.2 mg/dL (0-0.2)
[2019-02-13 12:13] LABS: Free T4 (Free Thyroxine) 0.8 ng/dL (0.76-1.46)
--- NOTE | 2019-02-13 13:30 | Cat Scan Report ---
PROCEDURE: CT HEAD/BRAIN WO CON TECHNIQUE: Computerized tomography of the head was performed without contrast material. CT DOSE LENGTH PRODUCT: 1047.6 mGycm HISTORY: altered mental status COMPARISONS: 02/06/2019 . FINDINGS: There are chronic ischemic changes in the left frontal lobe. No CT evidence of intracranial mass, hem orrhage, acute territorial infarction, or hydrocephalus. The intracranial arteries are symmetric in d ensity. Calvarium is intact. There is mild deformity of the right zygomatic arch, which appears chron ic. Paranasal sinuses and mastoids are aerated. IMPRESSION: No CT evidence of acute abnormality . This document is electronically signed by Zandra Vazquez MD., February 13 2019 01:28:04 PM ET
[2019-02-13] MEDS ORDERED: ASPIRIN PO ONE (14:35)
--- NOTE | 2019-02-13 14:35 | History and Physical Report ---
History of Present Illness Chief complaint: He is confused History of present illness: 58 YO Male with HTN, Seizure Disorder, ETOH Dependence, NIcotine Dependence presents to ED for evaluation. Pt is lethargic and unable to provide history. Pt history provided by his sister who is at bedside during exam and interview. As per sister, the patient was in his usual state of health at bedtime around 2130hrs. Upon waking from sleep around 0930hrs and was found to have new onset dizziness, confusion, slurred speech, and inability to walk on his own. Pt also kept repeating "I know and I didn't do it" to all questions asked of him. EMS notified, and upon arrival the patient was found to be in distress. Pt transported to [facility]. Pt seen and evaluated in ED and found to have Encephalopathy, as well as symptoms consistent with CVA. Pt is outside the therapeutic window for TPA. Pt admitted to telemetry and initiated on CVA protocol. No further history obtainable. Neurology consulted in ED. Past History Past Medical History: hypertension, seizures Past Surgical History: Other (Left Arm, Right Leg, Glaucoma) Social history: single, lives with family, smoking, alcohol abuse Family history: hypertension Medications and Allergies Allergies Allergy/AdvReac Type Severity Reaction Status Date / Time No Known Allergies Allergy Unverified 03/05/15 10:54 Home Medications Medication Instructions Recorded Confirmed Last Taken Type Travoprost (Benzalkonium) 2.5 ml OP HS 03/05/15 02/07/19 03/05/15 23:30 History [Travoprost 0.004% Eye Drop] Cyproheptadine [Periactin] 4 mg PO DAILY 02/07/19 02/07/19 Unknown History Folic Acid [Folvite] 1 mg PO QDAY 02/07/19 02/07/19 Unknown History Carvedilol [Coreg] 12.5 mg PO BID #60 tablet 02/09/19 Unknown Rx Folic Acid [Folvite] 1 mg PO DAILY #30 tablet 02/09/19 Unknown Rx Latanoprost 0.005% 1 drops OU QPM bottle 02/09/19 Unknown Rx Losartan [Cozaar] 100 mg PO QDAY #30 tablet 02/09/19 Unknown Rx Phenytoin Sodium Extended 300 mg PO BID #60 capsule 02/09/19 Unknown Rx Phenytoin [Dilantin] 300 mg PO BID #60 capsule.er 02/09/19 Unknown Rx Pravastatin [Pravachol] 40 mg PO QHS #30 tablet 02/09/19 Unknown Rx Pravastatin [Pravachol] 40 mg PO QHS #30 tablet 02/09/19 Unknown Rx Sertraline [Zoloft] 50 mg PO QHS #60 tablet 02/09/19 Unknown Rx Thiamine [Vitamin B-1] 100 mg PO QDAY #30 tablet 02/09/19 Unknown Rx amLODIPine [Norvasc] 10 mg PO DAILY #30 tablet 02/09/19 Unknown Rx levETIRAcetam [Keppra TAB] 1,000 mg PO BID #60 tablet 02/09/19 Unknown Rx Review of Systems ROS unobtainable: due to mental status Exam - Constitutional Vitals: Temp Pulse Resp BP Pulse Ox 98 F 57 L 16 169/85 97 02/13/19 12:33 02/13/19 12:33 02/13/19 12:33 02/13/19 12:33 02/13/19 12:33 General appearance: Present: mild distress, cachectic - EENT Eyes: Present: PERRL ENT: hearing intact, clear oral mucosa - Neck Neck: Present: supple, normal ROM - Respiratory Respiratory effort: normal Respiratory: bilateral: CTA - Cardiovascular Heart Sounds: Present: S1 & S2. Absent: rub, click - Extremities Extremities: pulses symmetrical, No edema Peripheral Pulses: within normal limits - Abdominal General gastrointestinal: Present: soft, non-tender, non-distended, normal bowel sounds Male genitourinary: Present: normal - Integumentary Integumentary: Present: clear, warm, dry - Musculoskeletal Musculoskeletal: generalized weakness - Psychiatric Psychiatric: no appropriate mood/affect, no intact judgment & insight, no memory intact - Neurologic Neurologic: CNII-XII intact, moves all extremities, no gait normal Results - Labs CBC & Chem 7: 02/13/19 11:00 02/13/19 11:00 Labs: Abnormal lab results 02/13/19 02/13/19 02/13/19 Range/Units 11:00 11:00 11:00 RBC 5.32 H (3.65-5.03) M/mm3 Hgb 16.2 H (11.8-15.2) gm/dl Hct 47.3 H (35.5-45.6) % Seg Neutrophils % 71.6 H (40.0-70.0) % Creatinine 0.7 L (0.8-1.5) mg/dL Glucose 107 H (75-100) mg/dL Alkaline Phosphatase 134 H (35-129) units/L Total Creatine Kinase (55-170) units/L CK-MB (CK-2) (0.0-4.0) ng/mL 02/13/19 Range/Units 11:00 RBC (3.65-5.03) M/mm3 Hgb (11.8-15.2) gm/dl Hct (35.5-45.6) % Seg Neutrophils % (40.0-70.0) % Creatinine (0.8-1.5) mg/dL Glucose (75-100) mg/dL Alkaline Phosphatase (35-129) units/L Total Creatine Kinase 729 H (55-170) units/L CK-MB (CK-2) 8.7 H (0.0-4.0) ng/mL Assessment and Plan - Patient Problems (1) CVA (cerebral vascular accident) Current Visit: No Status: Acute Qualifiers: Precerebral and cerebral artery: posterior cerebral artery Plan to address problem: Stroke Protocol: CT head, Neuro Check, MRI Brain, MRA Brain, Echo, Carotid doppler, seizure precautions, PT/OT/Speech Therapy, lipid panel (2) Encephalopathy Current Visit: Yes Status: Acute Plan to address problem: CT head, Neuro check, seizure precautions, fall precautions. (3) Seizure disorder Current Visit: Yes Status: Acute Plan to address problem: Keppra level, Keppra bolus in ED, seizure precautions, EEG (4) EtOH dependence Current Visit: Yes Status: Acute Qualifiers: Complication of substance-induced condition: with perceptual disturbance Plan to address problem: thiamine, folic acid, multivitamin, CIWA protocol, (5) DVT prophylaxis Current Visit: No Status: Acute Plan to address problem: SCD to BLE while in bed,
[2019-02-13] MEDS ORDERED: TYLENOL PO PRN ×2 (14:43→15:00)
[2019-02-13] MEDS ORDERED: SODIUM CHLORIDE FLUSH SYRINGE 10 ML IV PRN ×2 (14:43→15:00)
[2019-02-13] MEDS ORDERED: PROVENTIL IH PRN (14:43)
[2019-02-13] MEDS ORDERED: ZOFRAN IV PRN ×2 (14:43→15:00)
[2019-02-13] MEDS ORDERED: KEPPRA 1,000 MG/NS 0.75% 100ML 1,000 MG/100 ML BAG IV ONE (14:47)
[2019-02-13] MEDS ORDERED: MILK OF MAGNESIA PO PRN (15:00)
[2019-02-13] MEDS ORDERED: REGLAN PO PRN (15:00)
[2019-02-13] MEDS ORDERED: PHENERGAN PR PRN (15:00)
[2019-02-13] MEDS ORDERED: DULCOLAX PR PRN (15:00)
[2019-02-13] MEDS ORDERED: VITAMIN B-1 100 MG, FOLVITE 1 MG, INFUVITE 10 ML in NACL 0.9% 1000 ML 1,000 ML IV ONE (16:00)
--- NOTE | 2019-02-13 17:14 | Vascular Lab Report ---
PROCEDURE: VL CAROTID DUPLEX BILAT TECHNIQUE: Chest HISTORY: stroke COMPARISONS: FINDINGS: The right common carotid artery demonstrates normal sonographic appearance and flow velocity with pea k systolic velocity 80 cm/s and diastolic velocity 20 cm/s There is mild intimal thickening at the carotid bulb. At the mid right ICA peak systolic velocity 84 cm/s with end-diastolic velocity 20 cm/s. There is some intimal plaque within the left common carotid artery systolic velocity is 1 20 cm/s and end-diastolic velocity of 18 cm/s There is hard soft plaque within the left proximal ICA. Elevated peak systolic velocity 1 59 cm per s ec end-diastolic velocity 40 cm/s Spectral broadening noted Antegrade flow seen within both vertebral arteries IMPRESSION: Minimal plaque at the right carotid bulb was 50% stenosis Confirmation and elevated velocities within the proximal left ICA 50-79% stenosis range by velocity.. This document is electronically signed by Conrado Harris MD., February 13 2019 05:11:59 PM ET
[2019-02-13] MEDS: ACTIDOSE-AQUA PO SCH ×2 (21:33→23:24)
[2019-02-13] MEDS ORDERED: TRAVOPROST OP SCH (22:00)
[2019-02-13] MEDS ORDERED: PRAVACHOL PO SCH (22:00)
[2019-02-13] MEDS ORDERED: DILANTIN PO SCH (22:00)
[2019-02-13] MEDS ORDERED: PHENYTOIN SODIUM 300 MG PO SCH (22:00)
[2019-02-13 22:18] LABS: Bacteria,Urine 1+ /HPF (Negative); Bilirubin,Urine NEG (Negative); Blood,Urine NEG (Negative); Color,Urine Yellow (Yellow); Mucus,Urine FEW /HPF; Protein,Urine <15 mg/dL mg/dL (Negative); Urobilinogen,Urine < 2.0 mg/dL (<2.0); WBC,Urine < 1.0 /HPF (0.0-6.0)
[2019-02-13 22:36] LABS: Amphetamine Screen,Urine PRESUMPTIVE NEGATIVE; Benzodiazepines Screen,Urine PRESUMPTIVE NEGATIVE; Cannabinoid Screen,Urine PRESUMPTIVE NEGATIVE; Cocaine Screen,Urine PRESUMPTIVE NEGATIVE; Methadone Screen,Urine PRESUMPTIVE NEGATIVE; Opiate Screen,Urine PRESUMPTIVE NEGATIVE
[2019-02-13] MEDS: PRAVACHOL PO SCH (23:18)
[2019-02-13] MEDS: KEPPRA PO SCH (23:18)
[2019-02-13] MEDS: COREG PO SCH (23:18)
[2019-02-13] MEDS: ZOLOFT PO SCH (23:18)
[2019-02-13] MEDS: SODIUM CHLORIDE FLUSH SYRINGE 10 ML IV SCH (23:19)
[2019-02-13] MEDS: NACL 0.45% 1000 ML 1,000 ML IV SCH (23:20)
[2019-02-14] MEDS: APRESOLINE IV PRN ×3 (04:53→23:35)
[2019-02-14] MEDS: ACTIDOSE-AQUA PO SCH ×4 (06:14→21:10)
[2019-02-14] MEDS ORDERED: CARDIZEM IV ONE ×2 (06:41→07:00)
[2019-02-14] MEDS: SODIUM CHLORIDE FLUSH SYRINGE 10 ML IV SCH ×2 (09:13→21:10)
[2019-02-14] MEDS: COREG PO SCH ×2 (09:14→21:09)
[2019-02-14] MEDS: VITAMIN B-1 PO SCH (09:14)
[2019-02-14 09:18] LABS: Basophils # (Auto) 0.1 K/mm3 (0.0-0.1); Basophils % (Auto) 0.6 % (0.0-1.8); Eosinophils % (Auto) 0.3 % (0.0-4.3); Hematocrit 46.8 % (35.5-45.6); Hemoglobin 15.8 gm/dl (11.8-15.2); Lymphocytes # (Auto) 1.5 K/mm3 (1.2-5.4); Lymphocytes % (Auto) 13.1 % (13.4-35.0); Mean Corpuscular HGB Conc 34 % (32-34); Mean Corpuscular Volume 89 fl (84-94); Monocytes # (Auto) 0.7 K/mm3 (0.0-0.8); Monocytes % (Auto) 6.5 % (0.0-7.3); Platelet Count 389 K/mm3 (140-440); Red Blood Count 5.28 M/mm3 (3.65-5.03); Red Cell Distribution Width 14.5 % (13.2-15.2)
[2019-02-14] MEDS: PERIACTIN PO SCH (09:18)
[2019-02-14 09:32] LABS: Alanine Aminotransferase 20 units/L (7-56); Albumin 4.4 g/dL (3.9-5); BUN/Creatinine Ratio 11; Blood Urea Nitrogen 8 mg/dL (9-20); Calcium 9.2 mg/dL (8.4-10.2); Hemolysis Index 4
[2019-02-14] MEDS ORDERED: COZAAR PO SCH (10:00)
[2019-02-14] MEDS ORDERED: NORVASC PO SCH (10:00)
[2019-02-14] MEDS ORDERED: FOLVITE PO SCH (10:00)
[2019-02-14] MEDS: KEPPRA PO SCH ×2 (10:20→21:09)
[2019-02-14] MEDS ORDERED: ATIVAN IV NR (11:45)
[2019-02-14 13:00] LABS: Chol/HDL Ratio 5.56 %
[2019-02-14] MEDS: ZESTRIL PO SCH (13:51)
[2019-02-14] MEDS: PROCARDIA XL PO SCH ×2 (13:52→21:09)
[2019-02-14] MEDS: NACL 0.45% 1000 ML 1,000 ML IV SCH (14:01)
--- NOTE | 2019-02-14 15:54 | Progress Note ---
Assessment and Plan Assessment and plan: 58m who pw phenytoin toxicity, ams acute toxic Encephalopathy/phenytoin toxicity phenytoin level is supratherapeutic, has been dc. cont mgt per poison control, cont IVF, cont tele -neuro consult Seizure disorder cont keppra hx of EtOH dependence and tobacco dependence has been sober and off tobacco x 4 years, DVT prophylaxis SCD to BLE while in bed, History Interval history: Review of systems Constitutional: No fevers, no malaise, no joint pains CVS: No chest pain, no orthopnea, no dyspnea on exertion, no pedal edema GI: No abdominal pain, no diarrhea, no vomiting, no constipation Respiratory: no wheezing, no coughing Hospitalist Physical - Physical exam Narrative exam: General.: Appears well, no distress, nontoxic HEENT: Moist mucous membranes, extraocular muscles intact, no lymphadenopathy Neck: supple Cardiac: S1-S2 heard Lungs: clear to auscultation bilaterally Abdomen: soft , nontender, nondistended, bowel sounds positive Extremities: no edema clubbing or cyanosis Skin: no rash or lesions Neurologic: no gross focal deficits Psych: calm, and cooperative - Constitutional Vitals: Temp Pulse Resp BP Pulse Ox 98.2 F 83 15 180/89 92 02/14/19 03:57 02/14/19 13:51 02/14/19 12:00 02/14/19 13:51 02/14/19 14:31 General appearance: Present: mild distress, cachectic Results - Labs CBC & Chem 7: 02/18/19 07:29 02/18/19 07:29 Labs: Laboratory Last Values WBC 11.5 K/mm3 (4.5-11.0) H 02/14/19 08:28 RBC 5.28 M/mm3 (3.65-5.03) H 02/14/19 08:28 Hgb 15.8 gm/dl (11.8-15.2) H 02/14/19 08:28 Hct 46.8 % (35.5-45.6) H 02/14/19 08:28 MCV 89 fl (84-94) 02/14/19 08:28 MCH 30 pg (28-32) 02/14/19 08:28 MCHC 34 % (32-34) 02/14/19 08:28 RDW 14.5 % (13.2-15.2) 02/14/19 08:28 Plt Count 389 K/mm3 (140-440) 02/14/19 08:28 Lymph % (Auto) 13.1 % (13.4-35.0) L 02/14/19 08:28 Bureau % (Auto) 6.5 % (0.0-7.3) 02/14/19 08:28 Eos % (Auto) 0.3 % (0.0-4.3) 02/14/19 08:28 Baso % (Auto) 0.6 % (0.0-1.8) 02/14/19 08:28 Lymph # 1.5 K/mm3 (1.2-5.4) 02/14/19 08:28 Bureau # 0.7 K/mm3 (0.0-0.8) 02/14/19 08:28 Eos # 0.0 K/mm3 (0.0-0.4) 02/14/19 08:28 Baso # 0.1 K/mm3 (0.0-0.1) 02/14/19 08:28 Seg Neutrophils % 79.5 % (40.0-70.0) H 02/14/19 08:28 Seg Neutrophils # 9.1 K/mm3 (1.8-7.7) H 02/14/19 08:28 Sodium 138 mmol/L (137-145) 02/14/19 08:28 Potassium 3.2 mmol/L (3.6-5.0) L D 02/14/19 08:28 Chloride 96.7 mmol/L (98-107) L 02/14/19 08:28 Carbon Dioxide 23 mmol/L (22-30) 02/14/19 08:28 22 mmol/L 02/14/19 08:28 BUN 8 mg/dL (9-20) L 02/14/19 08:28 0.7 mg/dL (0.8-1.5) L 02/14/19 08:28 Estimated GFR > 60 ml/min 02/14/19 08:28 11 % 02/14/19 08:28 Glucose 140 mg/dL (75-100) H 02/14/19 08:28 Calcium 9.2 mg/dL (8.4-10.2) 02/14/19 08:28 < 0.20 mg/dL (0.1-1.2) 02/14/19 08:28 < 0.2 mg/dL (0-0.2) 02/13/19 11:00 0.0 mg/dL 02/13/19 11:00 AST 21 units/L (5-40) 02/14/19 08:28 ALT 20 units/L (7-56) 02/14/19 08:28 137 units/L (35-129) H 02/14/19 08:28 31.0 umol/L (25-60) 02/13/19 13:50 729 units/L (55-170) H 02/13/19 11:00 CK-MB (CK-2) 8.7 ng/mL (0.0-4.0) H 02/13/19 11:00 CK-MB (CK-2) Rel Index 1.1 (0-4) 02/13/19 11:00 < 0.010 ng/mL (0.00-0.029) 02/13/19 11:00 8.4 g/dL (6.3-8.2) H 02/14/19 08:28 4.4 g/dL (3.9-5) 02/14/19 08:28 1.1 % 02/14/19 08:28 Triglycerides 148 mg/dL (2-149) 02/14/19 08:20 Cholesterol 245 mg/dL (50-199) H 02/14/19 08:20 168 mg/dL (50-130) H 02/14/19 08:20 44 mg/dL (40-59) 02/14/19 08:20 5.56 % 02/14/19 08:20 TSH 0.731 mlU/mL (0.270-4.200) 02/13/19 11:00 Free T4 0.80 ng/dL (0.76-1.46) 02/13/19 11:00 Yellow (Yellow) 02/13/19 21:32 Slightly-cloudy (Clear) 02/13/19 21:32 8.0 (5.0-7.0) H 02/13/19 21:32 Ur Specific [place] 1.014 (1.003-1.030) 02/13/19 21:32 <15 mg/dl mg/dL (Negative) 02/13/19 21:32 Neg mg/dL (Negative) 02/13/19 21:32 Neg mg/dL (Negative) 02/13/19 21:32 Neg (Negative) 02/13/19 21:32 Neg (Negative) 02/13/19 21:32 Neg (Negative) 02/13/19 21:32 < 2.0 mg/dL (<2.0) 02/13/19 21:32 Ur Leukocyte Esterase Neg (Negative) 02/13/19 21:32 < 1.0 /HPF (0.0-6.0) 02/13/19 21:32 1.0 /HPF (0.0-6.0) 02/13/19 21:32 U Epithel Cells (Auto) < 1.0 /HPF (0-13.0) 02/13/19 21:32 1+ /HPF (Negative) 02/13/19 21:32 Few /HPF 02/13/19 21:32 Presumptive negative 02/13/19 21:32 Presumptive negative 02/13/19 21:32 Ur Barbiturates Screen Presumptive negative 02/13/19 21:32 Phenytoin 45.0 ug/mL (10.0-20.0) H* 02/14/19 12:59 Ur Phencyclidine Scrn Presumptive negative 02/13/19 21:32 Ur Amphetamines Screen Presumptive negative 02/13/19 21:32 U Benzodiazepines Scrn Presumptive negative 02/13/19 21:32 Presumptive negative 02/13/19 21:32 U Marijuana (THC) Screen Presumptive negative 02/13/19 21:32 Disclamer 02/13/19 21:32 Plasma/Serum Alcohol < 0.01 % (0-0.07) 02/13/19 11:26 Active Medications - Current Medications Current Medications: Generic Name Dose Route Start Last Admin Trade Name Freq PRN Reason Stop Dose Admin Acetaminophen 650 mg 02/13/19 14:43 Tylenol PO Q4H PRN Pain MILD(1-3)/Fever >100.5/KAM Albuterol 2.5 mg 02/13/19 14:43 Proventil IH Q4HRT PRN Shortness Of Breath Bisacodyl 10 mg 02/13/19 15:00 Dulcolax MN QDAY PRN Constipation Carvedilol 12.5 mg 02/13/19 22:00 02/14/19 09:14 Coreg PO 12.5 mg BID MARYELLEN Administration Charcoal 50 gm 02/14/19 14:00 02/14/19 14:06 Actidose-Aqua PO 02/14/19 20:01 50 gm Q6H MARYELLEN Administration Cyproheptadine HCl 4 mg 02/14/19 10:00 02/14/19 09:18 Periactin PO 4 mg DAILY MARYELLEN Administration Folic Acid 1 mg 02/15/19 10:00 Folvite PO QDAY MARYELLEN Hydralazine HCl 20 mg 02/14/19 11:42 Apresoline IV Q6H PRN give for sbp>165 or/and dbp>96 Sodium Chloride 1,000 mls @ 75 mls/hr 02/13/19 15:00 02/14/19 14:01 Nacl 0.45% 1000 Ml IV 75 mls/hr DIRECT MARYELLEN Administration Latanoprost 1 drops 02/13/19 18:00 Latanoprost 0.005% OU QPM MARYELLEN Levetiracetam 1,000 mg 02/13/19 22:00 02/14/19 10:20 Keppra PO 1,000 mg BID MARYELLEN Administration Lisinopril 40 mg 02/14/19 13:00 02/14/19 13:51 Zestril PO 40 mg QDAY MARYELLEN Administration Lorazepam 2 mg 02/13/19 15:33 Ativan IV Q1H PRN CIWA-Ar 8-15 Lorazepam 2 mg 02/14/19 11:45 02/14/19 13:52 Ativan IV 02/15/19 11:44 2 mg PRO[employer] CONSULTANT NR Administration Magnesium Hydroxide 30 ml 02/13/19 15:00 Milk Of Magnesia PO Q4H PRN Constipation Metoclopramide HCl 10 mg 02/13/19 15:00 Reglan PO Q6H PRN Nausea And Vomiting Nifedipine 60 mg 02/14/19 13:00 02/14/19 13:52 Procardia Xl PO 60 mg Q12HR MARYELLEN Administration Ondansetron HCl 4 mg 02/13/19 14:43 Zofran IV Q8H PRN Nausea And Vomiting Pravastatin Sodium 40 mg 02/13/19 22:00 02/13/19 23:18 Pravachol PO 40 mg QHS MARYELLEN Administration Promethazine HCl 25 mg 02/13/19 15:00 Phenergan MN Q6H PRN Nausea And Vomiting Sertraline HCl 50 mg 02/13/19 22:00 02/13/19 23:18 Zoloft PO 50 mg QHS MARYELLEN Administration Sodium Chloride 10 ml 02/13/19 22:00 02/14/19 09:13 Sodium Chloride Flush Syringe 10 Ml IV 10 ml BID MARYELLEN Administration Sodium Chloride 10 ml 02/13/19 14:43 Sodium Chloride Flush Syringe 10 Ml IV PRN PRN LINE FLUSH Thiamine HCl 100 mg 02/14/19 10:00 02/14/19 09:14 Vitamin B-1 PO 100 mg QDAY MARYELLEN Administration
--- NOTE | 2019-02-14 16:37 | Magnetic Resonance Report ---
PROCEDURE: MR BRAIN WO CON TECHNIQUE: Magnetic resonance imaging of the brain was performed without the IV injection of paramag netic contrast. HISTORY: stroke COMPARISONS: CT head February 13, 2019. MRI brain February 07, 2019. FINDINGS: T2/FLAIR hyperintensities in the periventricular and subcortical white matter are nonspecific. Differ ential diagnosis includes migraines, microvascular ischemic disease, demyelinating process, encephali tis/encephalopathy, and trauma. Midline structures are unremarkable. There is no tonsillar ectopy. Age appropriate aguilar-white matter differentiation is noted. There is no hydrocephalus. There is no mass. There is no hemorrhage. There is no midline shift. There is no restricted diffusion to suggest acute ischemia. The CP angles are grossly noted. Major flow voids are present. Paranasal sinuses are unremarkable. Globes are intact. Calvarial signal characteristics are grossly unremarkable. Extracranial soft tissues are intact. IMPRESSION: * No acute intracranial findings. * Chronic ischemic disease. This document is electronically signed by Solomon Segovia MD., February 14 2019 04:35:33 PM ET
--- NOTE | 2019-02-14 16:38 | Magnetic Resonance Report ---
PROCEDURE: MR MRA/MRV HEAD WO CON TECHNIQUE: Axial 3-D [id number] MR angiography of the [place] of the brain was performe d. The source images were reconstructed in various views using maximum intensity projection. HISTORY: stroke COMPARISONS: None currently available. FINDINGS: Intracranial carotids: Unremarkable. Anterior Cerebral: Unremarkable. Middle Cerebral: Unremarkable. Posterior Cerebral: Unremarkable. Basilar: Unremarkable. Intracranial Vertebral Arteries: Unremarkable. There is no aneurysm, dissection, vascular malformation, or significant vascular stenosis. There is n o evidence for vasculitis. IMPRESSION: * Unremarkable MRA of the head. This document is electronically signed by Solomon Segovia MD., February 14 2019 04:36:27 PM ET
--- NOTE | 2019-02-14 17:30 | Consultation ---
History of Present Illness Consult date: 02/14/19 Chief complaint: Dilantin toxicity History of present illness: This is a 58 YO M who has a known seizure disorder who presented with encephalop athy. Pt was taking double the prescibed amount of Dilantin by accident. He received 2 prescriptions at discharge. On my arrival he is sleeping, just got Ativan for MRI. Sister at bedside giving history. Past History Past Medical History: hypertension, seizures Past Surgical History: Other (Left Arm, Right Leg, Glaucoma) Social history: single, lives with family, smoking, alcohol abuse Family history: hypertension Medications and Allergies Allergies Allergy/AdvReac Type Severity Reaction Status Date / Time No Known Allergies Allergy Unverified 03/05/15 10:54 Home Medications Medication Instructions Recorded Confirmed Last Taken Type Folic Acid [Folvite] 1 mg PO QDAY 02/07/19 02/14/19 Unknown History Carvedilol [Coreg] 12.5 mg PO BID #60 tablet 02/09/19 02/14/19 Unknown Rx Folic Acid [Folvite] 1 mg PO DAILY #30 tablet 02/09/19 02/14/19 Unknown Rx Phenytoin Sodium Extended 300 mg PO BID #60 capsule 02/09/19 02/14/19 Unknown Rx Phenytoin [Dilantin] 300 mg PO BID #60 capsule.er 02/09/19 02/14/19 Unknown Rx Pravastatin [Pravachol] 40 mg PO QHS #30 tablet 02/09/19 02/14/19 Unknown Rx Sertraline [Zoloft] 50 mg PO QHS #60 tablet 02/09/19 02/14/19 Unknown Rx Thiamine [Vitamin B-1] 100 mg PO QDAY #30 tablet 02/09/19 02/14/19 Unknown Rx amLODIPine [Norvasc] 10 mg PO DAILY #30 tablet 02/09/19 02/14/19 Unknown Rx levETIRAcetam [Keppra TAB] 1,000 mg PO BID #60 tablet 02/09/19 02/14/19 Unknown Rx Losartan [Cozaar] 100 mg PO QDAY 02/14/19 02/14/19 Unknown History Active Meds: Active Medications Acetaminophen (Tylenol) 650 mg PO Q4H PRN PRN Reason: Pain MILD(1-3)/Fever >100.5/KAM Albuterol (Proventil) 2.5 mg IH Q4HRT PRN PRN Reason: Shortness Of Breath Bisacodyl (Dulcolax) 10 mg MS QDAY PRN PRN Reason: Constipation Carvedilol (Coreg) 12.5 mg PO BID [facility] Last Admin: 02/14/19 09:14 Dose: 12.5 mg Documented by: Charcoal (Actidose-Aqua) 50 gm PO Q6H [facility] Stop: 02/14/19 20:01 Last Admin: 02/14/19 14:06 Dose: 50 gm Documented by: Cyproheptadine HCl (Periactin) 4 mg PO DAILY [facility] Last Admin: 02/14/19 09:18 Dose: 4 mg Documented by: Folic Acid (Folvite) 1 mg PO QDAY [facility] Hydralazine HCl (Apresoline) 20 mg IV Q6H PRN PRN Reason: give for sbp>165 or/and dbp>96 Sodium Chloride (Nacl 0.45% 1000 Ml) 1,000 mls @ 75 mls/hr IV DIRECT [facility] Last Admin: 02/14/19 14:01 Dose: 75 mls/hr Documented by: Latanoprost (Latanoprost 0.005%) 1 drops OU QPM [facility] Levetiracetam (Keppra) 1,000 mg PO BID [facility] Last Admin: 02/14/19 10:20 Dose: 1,000 mg Documented by: Lisinopril (Zestril) 40 mg PO QDAY [facility] Last Admin: 02/14/19 13:51 Dose: 40 mg Documented by: Lorazepam (Ativan) 2 mg IV Q1H PRN PRN Reason: CIWA-Ar 8-15 Lorazepam (Ativan) 2 mg IV [employer] NR Stop: 02/15/19 11:44 Last Admin: 02/14/19 13:52 Dose: 2 mg Documented by: Magnesium Hydroxide (Milk Of Magnesia) 30 ml PO Q4H PRN PRN Reason: Constipation Metoclopramide HCl (Reglan) 10 mg PO Q6H PRN PRN Reason: Nausea And Vomiting Nifedipine (Procardia Xl) 60 mg PO Q12HR [facility] Last Admin: 02/14/19 13:52 Dose: 60 mg Documented by: Ondansetron HCl (Zofran) 4 mg IV Q8H PRN PRN Reason: Nausea And Vomiting Pravastatin Sodium (Pravachol) 40 mg PO QHS [facility] Last Admin: 02/13/19 23:18 Dose: 40 mg Documented by: Promethazine HCl (Phenergan) 25 mg MS Q6H PRN PRN Reason: Nausea And Vomiting Sertraline HCl (Zoloft) 50 mg PO QHS [facility] Last Admin: 02/13/19 23:18 Dose: 50 mg Documented by: Sodium Chloride (Sodium Chloride Flush Syringe 10 Ml) 10 ml IV BID [facility] Last Admin: 02/14/19 09:13 Dose: 10 ml Documented by: Sodium Chloride (Sodium Chloride Flush Syringe 10 Ml) 10 ml IV PRN PRN PRN Reason: LINE FLUSH Thiamine HCl (Vitamin B-1) 100 mg PO QDAY [facility] Last Admin: 02/14/19 09:14 Dose: 100 mg Documented by: Review of Systems ROS unobtainable: due to mental status Physical Examination - Vital Signs Vital Signs: Vital Signs Pulse Resp BP Pulse Ox 58 L 16 178/97 97 02/13/19 10:44 02/13/19 10:44 02/13/19 10:44 02/13/19 10:44 - Constitutional General appearance: comfortable - EENT EENT: Present: PERRL - Respiratory Respiratory: Present: lungs clear - Cardiovascular Cardiovascular: Present: regular rate - Gastrointestinal Gastrointestinal: Present: normoactive bowel sounds - Integumentary Integumentary: Present: normal - Neurologic Cranial nerve examination: PERRL, EOMI, face symmetric Detailed motor examination: other (sedated but tone is good) Results - Laboratory Findings CBC and BMP: 02/14/19 08:28 02/14/19 08:28 Abnormal Lab Findings: Abnormal Labs 02/13/19 02/13/19 02/13/19 11:00 11:00 11:00 WBC RBC 5.32 H Hgb 16.2 H Hct 47.3 H Lymph % (Auto) Seg Neutrophils % 71.6 H Seg Neutrophils # Potassium Chloride BUN Creatinine 0.7 L Glucose 107 H POC Glucose Alkaline Phosphatase 134 H Total Creatine Kinase CK-MB (CK-2) Total Protein Cholesterol LDL Cholesterol Direct Urine pH Phenytoin 02/13/19 02/13/19 02/13/19 11:00 11:26 21:32 WBC RBC Hgb Hct Lymph % (Auto) Seg Neutrophils % Seg Neutrophils # Potassium Chloride BUN Creatinine Glucose POC Glucose Alkaline Phosphatase Total Creatine Kinase 729 H CK-MB (CK-2) 8.7 H Total Protein Cholesterol LDL Cholesterol Direct Urine pH 8.0 H Phenytoin 89.0 H* 02/13/19 02/14/19 02/14/19 23:44 08:20 08:28 WBC 11.5 H RBC 5.28 H Hgb 15.8 H Hct 46.8 H Lymph % (Auto) 13.1 L Seg Neutrophils % 79.5 H Seg Neutrophils # 9.1 H Potassium Chloride BUN Creatinine Glucose POC Glucose Alkaline Phosphatase Total Creatine Kinase CK-MB (CK-2) Total Protein Cholesterol 245 H LDL Cholesterol Direct 168 H Urine pH Phenytoin 42.9 H* 02/14/19 02/14/19 02/14/19 08:28 08:28 12:59 WBC RBC Hgb Hct Lymph % (Auto) Seg Neutrophils % Seg Neutrophils # Potassium 3.2 L D Chloride 96.7 L BUN 8 L Creatinine 0.7 L Glucose 140 H POC Glucose Alkaline Phosphatase 137 H Total Creatine Kinase CK-MB (CK-2) Total Protein 8.4 H Cholesterol LDL Cholesterol Direct Urine pH Phenytoin 41.7 H* 45.0 H* 02/14/19 15:59 WBC RBC Hgb Hct Lymph % (Auto) Seg Neutrophils % Seg Neutrophils # Potassium Chloride BUN Creatinine Glucose POC Glucose 120 H Alkaline Phosphatase Total Creatine Kinase CK-MB (CK-2) Total Protein Cholesterol LDL Cholesterol Direct Urine pH Phenytoin - Diagnostic Findings Additional findings: MRI/A reviewed Assessment and Plan Dilantin toxicity This is a 58 YO with accidental dilantin toxicity Continue recommendations as per poison control Pt needs to be monitored on Telemetry if not already done Can continue Keppra, if sedation persists might need lower dose Continue care for all medical issues as you are doing
[2019-02-14] MEDS: LATANOPROST 0.005% OU SCH (19:45)
[2019-02-14] MEDS ORDERED: ACTIDOSE-AQUA PO SCH (21:00)
[2019-02-14] MEDS: ZOLOFT PO SCH (21:09)
[2019-02-14] MEDS: PRAVACHOL PO SCH (21:10)
[2019-02-15] MEDS: NACL 0.45% 1000 ML 1,000 ML IV SCH ×2 (05:28→20:32)
[2019-02-15] MEDS: APRESOLINE IV PRN ×2 (05:28→17:15)
[2019-02-15] MEDS: PROCARDIA XL PO SCH ×2 (09:10→22:53)
[2019-02-15] MEDS: VITAMIN B-1 PO SCH (09:10)
[2019-02-15] MEDS: KEPPRA PO SCH ×2 (09:11→22:53)
[2019-02-15] MEDS: FOLVITE PO SCH (09:11)
[2019-02-15] MEDS: COREG PO SCH ×2 (09:11→22:53)
[2019-02-15] MEDS: ZESTRIL PO SCH (09:13)
[2019-02-15] MEDS: SODIUM CHLORIDE FLUSH SYRINGE 10 ML IV SCH (09:14)
[2019-02-15] MEDS: PERIACTIN PO SCH (09:14)
--- NOTE | 2019-02-15 14:12 | Progress Note ---
Assessment and Plan Assessment and plan: Patient is a 58 yo Albanian speaking man with a history of HTN, Seizure Disorder, ETOH Dependence and NIcotine Dependence who presented to ED for unintentional phenytoin overdose and ams. he was just discharged from here on 02/09/19. Dilantin level elevated hence the admission. Sister Tami was the area loss prevention manager. Acute toxic Encephalopathy/phenytoin toxicity phenytoin level is supratherapeutic, has been dc. cont mgt per poison control, cont IVF, cont tele -neuro consult Seizure disorder cont keppra hx of EtOH dependence and tobacco dependence has been sober and off tobacco x 4 years, DVT prophylaxis SCD to BLE while in bed, History Interval history: Patient was seen and examined. Follow-up on current diagnosis of dilantin toxicity. No new issues reported to me. Patient denies any chest pain, shortness breath, nausea/vomiting or severe headaches. Imaging, nursing note, chart, labs and old chart reviewed. Discussed with patient. Hospitalist Physical - Physical exam Narrative exam: Gen: WDWN, NAD, Awake, Alert, Orientated x 3 HEENT: NCAT, EOMI, PERRL, OP Clear Neck: supple, no adenopathy, no thyromegaly, no JVD CVS/Heart: RRR, normal S1S2, pulses present bilaterally Chest/Lungs: CTA B, Symmetrical chest expansion, good air entry bilaterally GI/Abdomen: soft, NTND, good bowel sounds, no guarding or rebound /Bladder: no suprapubic tenderness, no CVA or paraspinal tenderness Extermity/Skin: no c/c/e, no obvious rash MSK: FROM x 4 Neuro: CN 2-12 grossly intact, no new focal deficits Psych: calm - Constitutional Vitals: Temp Pulse Resp BP Pulse Ox 98.7 F 76 15 189/88 94 02/15/19 03:40 02/15/19 12:00 02/15/19 12:00 02/15/19 09:13 02/15/19 12:00 General appearance: Present: cachectic. Absent: mild distress Results - Labs CBC & Chem 7: 02/14/19 08:28 02/14/19 08:28 Labs: Laboratory Last Values WBC 11.5 K/mm3 (4.5-11.0) H 02/14/19 08:28 RBC 5.28 M/mm3 (3.65-5.03) H 02/14/19 08:28 Hgb 15.8 gm/dl (11.8-15.2) H 02/14/19 08:28 Hct 46.8 % (35.5-45.6) H 02/14/19 08:28 MCV 89 fl (84-94) 02/14/19 08:28 MCH 30 pg (28-32) 02/14/19 08:28 MCHC 34 % (32-34) 02/14/19 08:28 RDW 14.5 % (13.2-15.2) 02/14/19 08:28 Plt Count 389 K/mm3 (140-440) 02/14/19 08:28 Lymph % (Auto) 13.1 % (13.4-35.0) L 02/14/19 08:28 [place] % (Auto) 6.5 % (0.0-7.3) 02/14/19 08:28 Eos % (Auto) 0.3 % (0.0-4.3) 02/14/19 08:28 Baso % (Auto) 0.6 % (0.0-1.8) 02/14/19 08:28 Lymph # 1.5 K/mm3 (1.2-5.4) 02/14/19 08:28 [place] # 0.7 K/mm3 (0.0-0.8) 02/14/19 08:28 Eos # 0.0 K/mm3 (0.0-0.4) 02/14/19 08:28 Baso # 0.1 K/mm3 (0.0-0.1) 02/14/19 08:28 Seg Neutrophils % 79.5 % (40.0-70.0) H 02/14/19 08:28 Seg Neutrophils # 9.1 K/mm3 (1.8-7.7) H 02/14/19 08:28 Sodium 138 mmol/L (137-145) 02/14/19 08:28 Potassium 3.2 mmol/L (3.6-5.0) L D 02/14/19 08:28 Chloride 96.7 mmol/L (98-107) L 02/14/19 08:28 Carbon Dioxide 23 mmol/L (22-30) 02/14/19 08:28 22 mmol/L 02/14/19 08:28 BUN 8 mg/dL (9-20) L 02/14/19 08:28 0.7 mg/dL (0.8-1.5) L 02/14/19 08:28 Estimated GFR > 60 ml/min 02/14/19 08:28 11 % 02/14/19 08:28 Glucose 140 mg/dL (75-100) H 02/14/19 08:28 POC Glucose 120 (70-105) H 02/14/19 15:59 Calcium 9.2 mg/dL (8.4-10.2) 02/14/19 08:28 < 0.20 mg/dL (0.1-1.2) 02/14/19 08:28 < 0.2 mg/dL (0-0.2) 02/13/19 11:00 0.0 mg/dL 02/13/19 11:00 AST 21 units/L (5-40) 02/14/19 08:28 ALT 20 units/L (7-56) 02/14/19 08:28 137 units/L (35-129) H 02/14/19 08:28 31.0 umol/L (25-60) 02/13/19 13:50 729 units/L (55-170) H 02/13/19 11:00 CK-MB (CK-2) 8.7 ng/mL (0.0-4.0) H 02/13/19 11:00 CK-MB (CK-2) Rel Index 1.1 (0-4) 02/13/19 11:00 < 0.010 ng/mL (0.00-0.029) 02/13/19 11:00 8.4 g/dL (6.3-8.2) H 02/14/19 08:28 4.4 g/dL (3.9-5) 02/14/19 08:28 1.1 % 02/14/19 08:28 Triglycerides 148 mg/dL (2-149) 02/14/19 08:20 Cholesterol 245 mg/dL (50-199) H 02/14/19 08:20 168 mg/dL (50-130) H 02/14/19 08:20 44 mg/dL (40-59) 02/14/19 08:20 5.56 % 02/14/19 08:20 TSH 0.731 mlU/mL (0.270-4.200) 02/13/19 11:00 Free T4 0.80 ng/dL (0.76-1.46) 02/13/19 11:00 Yellow (Yellow) 02/13/19 21:32 Slightly-cloudy (Clear) 02/13/19 21:32 8.0 (5.0-7.0) H 02/13/19 21:32 Ur Specific [place] 1.014 (1.003-1.030) 02/13/19 21:32 <15 mg/dl mg/dL (Negative) 02/13/19 21:32 Neg mg/dL (Negative) 02/13/19 21:32 Neg mg/dL (Negative) 02/13/19 21:32 Neg (Negative) 02/13/19 21:32 Neg (Negative) 02/13/19 21:32 Neg (Negative) 02/13/19 21:32 < 2.0 mg/dL (<2.0) 02/13/19 21:32 Ur Leukocyte Esterase Neg (Negative) 02/13/19 21:32 < 1.0 /HPF (0.0-6.0) 02/13/19 21:32 1.0 /HPF (0.0-6.0) 02/13/19 21:32 U Epithel Cells (Auto) < 1.0 /HPF (0-13.0) 02/13/19 21:32 1+ /HPF (Negative) 02/13/19 21:32 Few /HPF 02/13/19 21:32 Presumptive negative 02/13/19 21:32 Presumptive negative 02/13/19 21:32 Ur Barbiturates Screen Presumptive negative 02/13/19 21:32 Phenytoin 45.0 ug/mL (10.0-20.0) H* 02/14/19 12:59 Ur Phencyclidine Scrn Presumptive negative 02/13/19 21:32 Ur Amphetamines Screen Presumptive negative 02/13/19 21:32 U Benzodiazepines Scrn Presumptive negative 02/13/19 21:32 Presumptive negative 02/13/19 21:32 U Marijuana (THC) Screen Presumptive negative 02/13/19 21:32 Disclamer 02/13/19 21:32 Plasma/Serum Alcohol < 0.01 % (0-0.07) 02/13/19 11:26 Active Medications - Current Medications Current Medications: Generic Name Dose Route Start Last Admin Trade Name Freq PRN Reason Stop Dose Admin Acetaminophen 650 mg 02/13/19 14:43 Tylenol PO Q4H PRN Pain MILD(1-3)/Fever >100.5/KMA Albuterol 2.5 mg 02/13/19 14:43 Proventil IH Q4HRT PRN Shortness Of Breath Bisacodyl 10 mg 02/13/19 15:00 Dulcolax IN QDAY PRN Constipation Carvedilol 12.5 mg 02/13/19 22:00 02/15/19 09:11 Coreg PO 12.5 mg BID MARYELLEN Administration Cyproheptadine HCl 4 mg 02/14/19 10:00 02/15/19 09:14 Periactin PO 4 mg DAILY MARYELLEN Administration Folic Acid 1 mg 02/15/19 10:00 02/15/19 09:11 Folvite PO 1 mg QDAY MARYELLEN Administration Hydralazine HCl 20 mg 02/14/19 11:42 02/15/19 05:28 Apresoline IV 20 mg Q6H PRN Administration give for sbp>165 or/and dbp>96 Sodium Chloride 1,000 mls @ 75 mls/hr 02/13/19 15:00 02/15/19 05:28 Nacl 0.45% 1000 Ml IV 75 mls/hr DIRECT MARYELLEN Administration Latanoprost 1 drops 02/13/19 18:00 02/14/19 19:45 Latanoprost 0.005% OU Not Given QPM MARYELLEN Levetiracetam 1,000 mg 02/13/19 22:00 02/15/19 09:11 Keppra PO 1,000 mg BID MARYELLEN Administration Lisinopril 40 mg 02/14/19 13:00 02/15/19 09:13 Zestril PO 40 mg QDAY MARYELLEN Administration Lorazepam 2 mg 02/13/19 15:33 Ativan IV Q1H PRN CIWA-Ar 8-15 Magnesium Hydroxide 30 ml 02/13/19 15:00 Milk Of Magnesia PO Q4H PRN Constipation Metoclopramide HCl 10 mg 02/13/19 15:00 Reglan PO Q6H PRN Nausea And Vomiting Nifedipine 60 mg 02/14/19 13:00 02/15/19 09:10 Procardia Xl PO 60 mg Q12HR MARYELLEN Administration Ondansetron HCl 4 mg 02/13/19 14:43 Zofran IV Q8H PRN Nausea And Vomiting Pravastatin Sodium 40 mg 02/13/19 22:00 02/14/19 21:10 Pravachol PO 40 mg QHS MARYELLEN Administration Promethazine HCl 25 mg 02/13/19 15:00 Phenergan IN Q6H PRN Nausea And Vomiting Sertraline HCl 50 mg 02/13/19 22:00 02/14/19 21:09 Zoloft PO 50 mg QHS MARYELLEN Administration Sodium Chloride 10 ml 02/13/19 22:00 02/15/19 09:14 Sodium Chloride Flush Syringe 10 Ml IV 10 ml BID MARYELLEN Administration Sodium Chloride 10 ml 02/13/19 14:43 Sodium Chloride Flush Syringe 10 Ml IV PRN PRN LINE FLUSH Thiamine HCl 100 mg 02/14/19 10:00 02/15/19 09:10 Vitamin B-1 PO 100 mg QDAY MARYELLEN Administration
[2019-02-15] MEDS: LATANOPROST 0.005% OU SCH (17:52)
[2019-02-15] MEDS: ATIVAN IV PRN (22:53)
[2019-02-15] MEDS: ZOLOFT PO SCH (22:54)
[2019-02-16] MEDS: PRAVACHOL PO SCH (00:12)
[2019-02-16] MEDS: SODIUM CHLORIDE FLUSH SYRINGE 10 ML IV SCH ×3 (00:12→22:07)
[2019-02-16] MEDS: ATIVAN IV PRN (04:03)
[2019-02-16 09:16] LABS: Hematocrit 40.7 % (35.5-45.6); Hemoglobin 13.8 gm/dl (11.8-15.2); Mean Corpuscular HGB Conc 34 % (32-34); Mean Corpuscular Volume 88 fl (84-94); Platelet Count 379 K/mm3 (140-440); Red Blood Count 4.62 M/mm3 (3.65-5.03); Red Cell Distribution Width 14.5 % (13.2-15.2)
[2019-02-16 09:37] LABS: BUN/Creatinine Ratio 12; Blood Urea Nitrogen 12 mg/dL (9-20); Calcium 8.4 mg/dL (8.4-10.2); Hemolysis Index 6
[2019-02-16] MEDS: PERIACTIN PO SCH (10:42)
[2019-02-16] MEDS: PROCARDIA XL PO SCH ×2 (10:42→22:06)
[2019-02-16] MEDS: COREG PO SCH ×2 (10:43→22:06)
[2019-02-16] MEDS: FOLVITE PO SCH (10:43)
[2019-02-16] MEDS: KEPPRA PO SCH ×2 (10:43→22:06)
[2019-02-16] MEDS: VITAMIN B-1 PO SCH (10:43)
[2019-02-16] MEDS: ZESTRIL PO SCH (10:43)
[2019-02-16] MEDS: NACL 0.45% 1000 ML 1,000 ML IV SCH (10:53)
--- NOTE | 2019-02-16 13:22 | Progress Note ---
Assessment and Plan Assessment and plan: Patient is a 58 yo Sinhala speaking man with a history of HTN, Seizure Disorder, ETOH Dependence and prior NIcotine Dependence who presented to ED for unintentional phenytoin overdose and ams. he was just discharged from here on 02/09/19. Dilantin level elevated hence the admission. Sister Tami was the laborer aquatic life. * Brain MRI, no acute finding, chronic changes * Brain MRA unremarkable * Carotid Doppler: left ICA stenosis 50-79% Carotid artery stenosis: consult Vascular surgery, add aspirin, add lipitor Dilatin/phenytoin toxicity: stop drug and observe, supportive care, serial level checks, on IVFs Acute toxic Encephalopathy due to Dilantin Seizure disorder: cont keppra Hx of EtOH dependence and tobacco dependence: has been sober and off tobacco x 4 years, DVT prophylaxis: SCD to BLE while in bed, Disposition: continue inpatient care, once Dilantin levels normalizes History Interval history: Patient was seen and examined. Follow-up on current diagnosis of dilantin toxicity. No new issues reported to me. Patient denies any chest pain, shortness breath, nausea/vomiting or severe headaches. Imaging, nursing note, chart, labs and old chart reviewed. Discussed with patient and sister Tami at bedside who was the laborer aquatic life. Hospitalist Physical - Physical exam Narrative exam: Gen: WDWN, NAD, Awake, Alert, Orientated x 3 HEENT: NCAT, EOMI, PERRL, OP Clear Neck: supple, no adenopathy, no thyromegaly, no JVD CVS/Heart: RRR, normal S1S2, pulses present bilaterally Chest/Lungs: CTA B, Symmetrical chest expansion, good air entry bilaterally GI/Abdomen: soft, NTND, good bowel sounds, no guarding or rebound /Bladder: no suprapubic tenderness, no CVA or paraspinal tenderness Extermity/Skin: no c/c/e, no obvious rash MSK: FROM x 4 Neuro: CN 2-12 grossly intact, no new focal deficits Psych: calm - Constitutional Vitals: Temp Pulse Resp BP Pulse Ox 98.5 F 72 20 152/76 91 02/16/19 07:46 02/16/19 10:43 02/16/19 07:46 02/16/19 10:43 02/16/19 11:53 General appearance: Present: cachectic. Absent: mild distress Results - Labs CBC & Chem 7: 02/16/19 08:57 02/16/19 08:57 Labs: Laboratory Last Values WBC 8.8 K/mm3 (4.5-11.0) 02/16/19 08:57 RBC 4.62 M/mm3 (3.65-5.03) 02/16/19 08:57 Hgb 13.8 gm/dl (11.8-15.2) 02/16/19 08:57 Hct 40.7 % (35.5-45.6) D 02/16/19 08:57 MCV 88 fl (84-94) 02/16/19 08:57 MCH 30 pg (28-32) 02/16/19 08:57 MCHC 34 % (32-34) 02/16/19 08:57 RDW 14.5 % (13.2-15.2) 02/16/19 08:57 Plt Count 379 K/mm3 (140-440) 02/16/19 08:57 Lymph % (Auto) 13.1 % (13.4-35.0) L 02/14/19 08:28 [place] % (Auto) 6.5 % (0.0-7.3) 02/14/19 08:28 Eos % (Auto) 0.3 % (0.0-4.3) 02/14/19 08:28 Baso % (Auto) 0.6 % (0.0-1.8) 02/14/19 08:28 Lymph # 1.5 K/mm3 (1.2-5.4) 02/14/19 08:28 [place] # 0.7 K/mm3 (0.0-0.8) 02/14/19 08:28 Eos # 0.0 K/mm3 (0.0-0.4) 02/14/19 08:28 Baso # 0.1 K/mm3 (0.0-0.1) 02/14/19 08:28 Seg Neutrophils % 79.5 % (40.0-70.0) H 02/14/19 08:28 Seg Neutrophils # 9.1 K/mm3 (1.8-7.7) H 02/14/19 08:28 Sodium 135 mmol/L (137-145) L 02/16/19 08:57 Potassium 3.4 mmol/L (3.6-5.0) L 02/16/19 08:57 Chloride 97.2 mmol/L (98-107) L 02/16/19 08:57 Carbon Dioxide 25 mmol/L (22-30) 02/16/19 08:57 16 mmol/L 02/16/19 08:57 BUN 12 mg/dL (9-20) 02/16/19 08:57 1.0 mg/dL (0.8-1.5) 02/16/19 08:57 Estimated GFR > 60 ml/min 02/16/19 08:57 12 % 02/16/19 08:57 Glucose 106 mg/dL (75-100) H 02/16/19 08:57 POC Glucose 109 (70-105) H 02/15/19 16:33 Calcium 8.4 mg/dL (8.4-10.2) 02/16/19 08:57 < 0.20 mg/dL (0.1-1.2) 02/14/19 08:28 < 0.2 mg/dL (0-0.2) 02/13/19 11:00 0.0 mg/dL 02/13/19 11:00 AST 21 units/L (5-40) 02/14/19 08:28 ALT 20 units/L (7-56) 02/14/19 08:28 137 units/L (35-129) H 02/14/19 08:28 31.0 umol/L (25-60) 02/13/19 13:50 729 units/L (55-170) H 02/13/19 11:00 CK-MB (CK-2) 8.7 ng/mL (0.0-4.0) H 02/13/19 11:00 CK-MB (CK-2) Rel Index 1.1 (0-4) 02/13/19 11:00 < 0.010 ng/mL (0.00-0.029) 02/13/19 11:00 8.4 g/dL (6.3-8.2) H 02/14/19 08:28 4.4 g/dL (3.9-5) 02/14/19 08:28 1.1 % 02/14/19 08:28 Triglycerides 148 mg/dL (2-149) 02/14/19 08:20 Cholesterol 245 mg/dL (50-199) H 02/14/19 08:20 168 mg/dL (50-130) H 02/14/19 08:20 44 mg/dL (40-59) 02/14/19 08:20 5.56 % 02/14/19 08:20 TSH 0.731 mlU/mL (0.270-4.200) 02/13/19 11:00 Free T4 0.80 ng/dL (0.76-1.46) 02/13/19 11:00 Yellow (Yellow) 02/13/19 21:32 Slightly-cloudy (Clear) 02/13/19 21:32 8.0 (5.0-7.0) H 02/13/19 21:32 Ur Specific [place] 1.014 (1.003-1.030) 02/13/19 21:32 <15 mg/dl mg/dL (Negative) 02/13/19 21:32 Neg mg/dL (Negative) 02/13/19 21:32 Neg mg/dL (Negative) 02/13/19 21:32 Neg (Negative) 02/13/19 21:32 Neg (Negative) 02/13/19 21:32 Neg (Negative) 02/13/19 21:32 < 2.0 mg/dL (<2.0) 02/13/19 21:32 Ur Leukocyte Esterase Neg (Negative) 02/13/19 21:32 < 1.0 /HPF (0.0-6.0) 02/13/19 21:32 1.0 /HPF (0.0-6.0) 02/13/19 21:32 U Epithel Cells (Auto) < 1.0 /HPF (0-13.0) 02/13/19 21:32 1+ /HPF (Negative) 02/13/19 21:32 Few /HPF 02/13/19 21:32 Presumptive negative 02/13/19 21:32 Presumptive negative 02/13/19 21:32 Ur Barbiturates Screen Presumptive negative 02/13/19 21:32 Phenytoin 29.2 ug/mL (10.0-20.0) H 02/16/19 08:57 Levetiracetam 11.9 mcg/mL (12.0-46.0) L 02/13/19 14:50 Ur Phencyclidine Scrn Presumptive negative 02/13/19 21:32 Ur Amphetamines Screen Presumptive negative 02/13/19 21:32 U Benzodiazepines Scrn Presumptive negative 02/13/19 21:32 Presumptive negative 02/13/19 21:32 U Marijuana (THC) Screen Presumptive negative 02/13/19 21:32 Disclamer 02/13/19 21:32 Plasma/Serum Alcohol < 0.01 % (0-0.07) 02/13/19 11:26 Active Medications - Current Medications Current Medications: Generic Name Dose Route Start Last Admin Trade Name Freq PRN Reason Stop Dose Admin Acetaminophen 650 mg 02/13/19 14:43 Tylenol PO Q4H PRN Pain MILD(1-3)/Fever >100.5/KAM Albuterol 2.5 mg 02/13/19 14:43 Proventil IH Q4HRT PRN Shortness Of Breath Bisacodyl 10 mg 02/13/19 15:00 02/15/19 18:19 Dulcolax [place] 10 mg QDAY PRN Administration Constipation Carvedilol 12.5 mg 02/13/19 22:00 02/16/19 10:43 Coreg PO 12.5 mg BID MARYELLEN Administration Cyproheptadine HCl 4 mg 02/14/19 10:00 02/16/19 10:42 Periactin PO 4 mg DAILY MARYELLEN Administration Folic Acid 1 mg 02/15/19 10:00 02/16/19 10:43 Folvite PO 1 mg QDAY MARYELLEN Administration Hydralazine HCl 20 mg 02/14/19 11:42 02/15/19 17:15 Apresoline IV 20 mg Q6H PRN Administration give for sbp>165 or/and dbp>96 Sodium Chloride 1,000 mls @ 75 mls/hr 02/13/19 15:00 02/16/19 10:53 Nacl 0.45% 1000 Ml IV 75 mls/hr DIRECT MARYELLEN Administration Latanoprost 1 drops 02/13/19 18:00 02/15/19 17:52 Latanoprost 0.005% OU 1 drops QPM MARYELLEN Administration Levetiracetam 1,000 mg 02/13/19 22:00 02/16/19 10:43 Keppra PO 1,000 mg BID MARYELLEN Administration Lisinopril 40 mg 02/14/19 13:00 02/16/19 10:43 Zestril PO 40 mg QDAY MARYELLEN Administration Lorazepam 2 mg 02/13/19 15:33 02/16/19 04:03 Ativan IV 2 mg Q1H PRN Administration CIWA-Ar 8-15 Magnesium Hydroxide 30 ml 02/13/19 15:00 Milk Of Magnesia PO Q4H PRN Constipation Metoclopramide HCl 10 mg 02/13/19 15:00 Reglan PO Q6H PRN Nausea And Vomiting Nifedipine 60 mg 02/14/19 13:00 02/16/19 10:42 Procardia Xl PO 60 mg Q12HR MARYELLEN Administration Ondansetron HCl 4 mg 02/13/19 14:43 Zofran IV Q8H PRN Nausea And Vomiting Potassium Chloride 20 meq 02/16/19 13:13 K-Dur PO 02/16/19 13:14 ONCE ONE Pravastatin Sodium 40 mg 02/13/19 22:00 02/16/19 00:12 Pravachol PO Not Given QHS MARYELLEN Promethazine HCl 25 mg 02/13/19 15:00 Phenergan [place] Q6H PRN Nausea And Vomiting Sertraline HCl 50 mg 02/13/19 22:00 02/15/19 22:54 Zoloft PO 50 mg QHS MARYELLEN Administration Sodium Chloride 10 ml 02/13/19 22:00 02/16/19 10:44 Sodium Chloride Flush Syringe 10 Ml IV Not Given BID MARYELLEN Sodium Chloride 10 ml 02/13/19 14:43 Sodium Chloride Flush Syringe 10 Ml IV PRN PRN LINE FLUSH Thiamine HCl 100 mg 02/14/19 10:00 02/16/19 10:43 Vitamin B-1 PO 100 mg QDAY MARYELLEN Administration Nutrition/Malnutrition Assess - Dietary Evaluation Nutrition/Malnutrition Findings: Nutrition Notes Start: 02/15/19 15:39 Freq: Status: Active Protocol: Document 02/15/19 15:39 RM (Rec: 02/15/19 15:45 RM [email or web address]) Nutrition Notes Need for Assessment generated from: Low BMI Initial or Follow up Assessment Current Diagnosis Hypertension,Stroke Other Pertinent Diagnosis Seizure disorder, encephalopathy Current Diet [facility] soft Labs/Tests Reviewed Pertinent Medications Reviewed Height 6 ft Weight 58.7 kg [place] Body Weight (kg) 80.90 BMI 17.5 Subjective/Other Information Screened for low BMI. Pt and pt sister in room at time of visit. Pt sister spoke on behalf of pt. 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 Stated that pt ate breakfast but has not eaten his lunch. Unsure of UBW. No temporal or orbital wasting . Burn Absent Trauma Absent #1 Nutrition Diagnosis Inadequate oral intake Etiology encephalopathy As Evidenced by Signs and Symptoms pt sister statement that pt did not eat lunch Is patient on ventilator? No Is Patient Ambulatory and/or Out of Bed No REE-([facility]-confined to bed) 1732.956 Kcal/Kg value to use for calculation 38 Approximate Energy Requirements Using 2231 kcal/Kg Calculation Used for Recommendations Kcal/kg Additional Notes Protein Needs: 70-88g (1.2-1. 5g/kg) Fluid Needs: 1 ml/kcal Nutrition Intervention Change Diet Order: Mech soft, Cardiac Add Supplement/Snack (indicate name/kcal Ensure Enlive Vanilla 1 daily /protein ) Provides kCal: 350 Provides Protein (gm) 20 Goal #1 Meet at least 75% of calorie and protein needs via PO and ONS intakes Anticipated Discharge Needs: Mech soft diet, Cardiac Follow-Up By: 02/17/19 Additional Comments Follow for PO and ONS intakes
[2019-02-16] MEDS ORDERED: K-DUR PO ONE (14:13)
[2019-02-16] MEDS: BABY ASPIRIN PO SCH (15:18)
[2019-02-16] MEDS ORDERED: POTASSIUM CHLORIDE PO ONE (16:00)
--- NOTE | 2019-02-16 17:48 | Event Note ---
Date: 02/16/19 Full consult pending. Patient admitted with anticonvulsant medication toxicity. There does not appear to be recent focal neurological symptoms. As part of the workup, carotid artery duplex was done. This shows a modest amount of irregular plaque in the left internal carotid artery which probably causes about 50% diameter reduction. There is no significant stenosis in the right internal carotid artery. The left carotid artery stenosis does not appear to be symptomatic at this time. Medical treatment with antiplatelet agents and cholesterol lowering agents would be appropriate if clinically possible in this patient with recurrent seizures. No surgical intervention needed at this time.
[2019-02-16] MEDS: LATANOPROST 0.005% OU SCH (18:42)
--- NOTE | 2019-02-16 19:54 | Ultrasound Report ---
PROCEDURE: US BLADDER RESIDUAL TECHNIQUE: 58-year-old male HISTORY: need stat bladder ultrasound COMPARISONS: None FINDINGS: Urinary bladder volume measures 648 mL. No post void was performed. IMPRESSION: Urinary bladder volume 648 mL. This document is electronically signed by Roberta Baez MD., February 16 2019 07:52:34 PM ET
[2019-02-16] MEDS: ZOLOFT PO SCH (22:07)
[2019-02-17] MEDS: NACL 0.45% 1000 ML 1,000 ML IV SCH ×2 (00:22→15:31)
[2019-02-17 05:31] LABS: Hematocrit 39.4 % (35.5-45.6); Hemoglobin 13.4 gm/dl (11.8-15.2); Mean Corpuscular HGB Conc 34 % (32-34); Mean Corpuscular Volume 90 fl (84-94); Platelet Count 334 K/mm3 (140-440); Red Blood Count 4.39 M/mm3 (3.65-5.03); Red Cell Distribution Width 14.5 % (13.2-15.2)
[2019-02-17 06:02] LABS: BUN/Creatinine Ratio 15; Blood Urea Nitrogen 12 mg/dL (9-20); Calcium 8.9 mg/dL (8.4-10.2); Hemolysis Index 5
[2019-02-17] MEDS: PERIACTIN PO SCH (09:26)
[2019-02-17] MEDS: KEPPRA PO SCH ×2 (09:27→22:17)
[2019-02-17] MEDS: PROCARDIA XL PO SCH ×2 (09:27→22:17)
[2019-02-17] MEDS: BABY ASPIRIN PO SCH (09:27)
[2019-02-17] MEDS: FOLVITE PO SCH (09:27)
[2019-02-17] MEDS: ZESTRIL PO SCH (09:27)
[2019-02-17] MEDS: VITAMIN B-1 PO SCH (09:27)
[2019-02-17] MEDS: COREG PO SCH ×2 (09:28→22:17)
[2019-02-17] MEDS: SODIUM CHLORIDE FLUSH SYRINGE 10 ML IV SCH ×2 (09:28→22:17)
--- NOTE | 2019-02-17 14:25 | Progress Note ---
Assessment and Plan Assessment and plan: Patient is a 58 yo Surinamese speaking man with a history of HTN, Seizure Disorder, ETOH Dependence and prior NIcotine Dependence who presented to ED for unintentional phenytoin overdose and ams. he was just discharged from here on 02/09/19. Dilantin level elevated hence the admission. Sister Tami was the banquet server on call. * Brain MRI, no acute finding, chronic changes * Brain MRA unremarkable * Carotid Doppler: left ICA stenosis 50-79% Carotid artery stenosis: consult Vascular surgery, add aspirin, add lipitor Dilatin/phenytoin toxicity: stop drug and observe, supportive care, serial level checks, on IVFs Acute toxic Encephalopathy due to Dilantin Seizure disorder: cont keppra Hx of EtOH dependence and tobacco dependence: has been sober and off tobacco x 4 years, DVT prophylaxis: SCD to BLE while in bed, Disposition: continue inpatient care, once Dilantin levels normalizes History Interval history: Patient was seen and examined. Follow-up on current diagnosis of dilantin toxicity. No new issues reported to me. Patient denies any chest pain, shortness breath, nausea/vomiting or severe headaches. Imaging, nursing note, chart, labs and old chart reviewed. Discussed with patient and sister Tami at bedside who was the banquet server on call. Hospitalist Physical - Physical exam Narrative exam: Gen: WDWN, NAD, Awake, Alert, Orientated x 3 HEENT: NCAT, EOMI, PERRL, OP Clear Neck: supple, no adenopathy, no thyromegaly, no JVD CVS/Heart: RRR, normal S1S2, pulses present bilaterally Chest/Lungs: CTA B, Symmetrical chest expansion, good air entry bilaterally GI/Abdomen: soft, NTND, good bowel sounds, no guarding or rebound /Bladder: no suprapubic tenderness, no CVA or paraspinal tenderness Extermity/Skin: no c/c/e, no obvious rash MSK: FROM x 4 Neuro: CN 2-12 grossly intact, no new focal deficits Psych: calm - Constitutional Vitals: Temp Pulse Resp BP Pulse Ox 97.9 F 69 18 153/66 95 02/17/19 11:56 02/17/19 11:56 02/17/19 11:56 02/17/19 11:56 02/17/19 11:56 General appearance: Present: cachectic. Absent: mild distress Results - Labs CBC & Chem 7: 02/17/19 04:58 02/17/19 04:58 Labs: Laboratory Last Values WBC 9.5 K/mm3 (4.5-11.0) 02/17/19 04:58 RBC 4.39 M/mm3 (3.65-5.03) 02/17/19 04:58 Hgb 13.4 gm/dl (11.8-15.2) 02/17/19 04:58 Hct 39.4 % (35.5-45.6) 02/17/19 04:58 MCV 90 fl (84-94) 02/17/19 04:58 MCH 31 pg (28-32) 02/17/19 04:58 MCHC 34 % (32-34) 02/17/19 04:58 RDW 14.5 % (13.2-15.2) 02/17/19 04:58 Plt Count 334 K/mm3 (140-440) 02/17/19 04:58 Lymph % (Auto) 13.1 % (13.4-35.0) L 02/14/19 08:28 [place] % (Auto) 6.5 % (0.0-7.3) 02/14/19 08:28 Eos % (Auto) 0.3 % (0.0-4.3) 02/14/19 08:28 Baso % (Auto) 0.6 % (0.0-1.8) 02/14/19 08:28 Lymph # 1.5 K/mm3 (1.2-5.4) 02/14/19 08:28 [place] # 0.7 K/mm3 (0.0-0.8) 02/14/19 08:28 Eos # 0.0 K/mm3 (0.0-0.4) 02/14/19 08:28 Baso # 0.1 K/mm3 (0.0-0.1) 02/14/19 08:28 Seg Neutrophils % 79.5 % (40.0-70.0) H 02/14/19 08:28 Seg Neutrophils # 9.1 K/mm3 (1.8-7.7) H 02/14/19 08:28 Sodium 142 mmol/L (137-145) D 02/17/19 04:58 Potassium 3.7 mmol/L (3.6-5.0) 02/17/19 04:58 Chloride 102.4 mmol/L (98-107) 02/17/19 04:58 Carbon Dioxide 27 mmol/L (22-30) 02/17/19 04:58 16 mmol/L 02/17/19 04:58 BUN 12 mg/dL (9-20) 02/17/19 04:58 0.8 mg/dL (0.8-1.5) 02/17/19 04:58 Estimated GFR > 60 ml/min 02/17/19 04:58 15 % 02/17/19 04:58 Glucose 91 mg/dL (75-100) 02/17/19 04:58 POC Glucose 109 (70-105) H 02/15/19 16:33 Calcium 8.9 mg/dL (8.4-10.2) 02/17/19 04:58 < 0.20 mg/dL (0.1-1.2) 02/14/19 08:28 < 0.2 mg/dL (0-0.2) 02/13/19 11:00 0.0 mg/dL 02/13/19 11:00 AST 21 units/L (5-40) 02/14/19 08:28 ALT 20 units/L (7-56) 02/14/19 08:28 137 units/L (35-129) H 02/14/19 08:28 31.0 umol/L (25-60) 02/13/19 13:50 729 units/L (55-170) H 02/13/19 11:00 CK-MB (CK-2) 8.7 ng/mL (0.0-4.0) H 02/13/19 11:00 CK-MB (CK-2) Rel Index 1.1 (0-4) 02/13/19 11:00 < 0.010 ng/mL (0.00-0.029) 02/13/19 11:00 8.4 g/dL (6.3-8.2) H 02/14/19 08:28 4.4 g/dL (3.9-5) 02/14/19 08:28 1.1 % 02/14/19 08:28 Triglycerides 148 mg/dL (2-149) 02/14/19 08:20 Cholesterol 245 mg/dL (50-199) H 02/14/19 08:20 168 mg/dL (50-130) H 02/14/19 08:20 44 mg/dL (40-59) 02/14/19 08:20 5.56 % 02/14/19 08:20 TSH 0.731 mlU/mL (0.270-4.200) 02/13/19 11:00 Free T4 0.80 ng/dL (0.76-1.46) 02/13/19 11:00 Yellow (Yellow) 02/13/19 21:32 Slightly-cloudy (Clear) 02/13/19 21:32 8.0 (5.0-7.0) H 02/13/19 21:32 Ur Specific [place] 1.014 (1.003-1.030) 02/13/19 21:32 <15 mg/dl mg/dL (Negative) 02/13/19 21:32 Neg mg/dL (Negative) 02/13/19 21:32 Neg mg/dL (Negative) 02/13/19 21:32 Neg (Negative) 02/13/19 21:32 Neg (Negative) 02/13/19 21:32 Neg (Negative) 02/13/19 21:32 < 2.0 mg/dL (<2.0) 02/13/19 21:32 Ur Leukocyte Esterase Neg (Negative) 02/13/19 21:32 < 1.0 /HPF (0.0-6.0) 02/13/19 21:32 1.0 /HPF (0.0-6.0) 02/13/19 21:32 U Epithel Cells (Auto) < 1.0 /HPF (0-13.0) 02/13/19 21:32 1+ /HPF (Negative) 02/13/19 21:32 Few /HPF 02/13/19 21:32 Presumptive negative 02/13/19 21:32 Presumptive negative 02/13/19 21:32 Ur Barbiturates Screen Presumptive negative 02/13/19 21:32 Phenytoin 25.8 ug/mL (10.0-20.0) H 02/17/19 04:58 Levetiracetam 11.9 mcg/mL (12.0-46.0) L 02/13/19 14:50 Ur Phencyclidine Scrn Presumptive negative 02/13/19 21:32 Ur Amphetamines Screen Presumptive negative 02/13/19 21:32 U Benzodiazepines Scrn Presumptive negative 02/13/19 21:32 Presumptive negative 02/13/19 21:32 U Marijuana (THC) Screen Presumptive negative 02/13/19 21:32 Disclamer 02/13/19 21:32 Plasma/Serum Alcohol < 0.01 % (0-0.07) 02/13/19 11:26 Active Medications - Current Medications Current Medications: Generic Name Dose Route Start Last Admin Trade Name Freq PRN Reason Stop Dose Admin Acetaminophen 650 mg 02/13/19 14:43 Tylenol PO Q4H PRN Pain MILD(1-3)/Fever >100.5/KAM Albuterol 2.5 mg 02/13/19 14:43 Proventil IH Q4HRT PRN Shortness Of Breath Aspirin 81 mg 02/16/19 14:00 02/17/19 09:27 Baby Aspirin PO 81 mg QDAY MARYELLEN Administration Atorvastatin Calcium 40 mg 02/16/19 22:00 02/16/19 22:06 Lipitor PO 40 mg QHS MARYELLEN Administration Bisacodyl 10 mg 02/13/19 15:00 02/15/19 18:19 Dulcolax ND 10 mg QDAY PRN Administration Constipation Carvedilol 12.5 mg 02/13/19 22:00 02/17/19 09:28 Coreg PO 12.5 mg BID MARYELLEN Administration Cyproheptadine HCl 4 mg 02/14/19 10:00 02/17/19 09:26 Periactin PO 4 mg DAILY MARYELLEN Administration Folic Acid 1 mg 02/15/19 10:00 02/17/19 09:27 Folvite PO 1 mg QDAY MARYELLEN Administration Hydralazine HCl 20 mg 02/14/19 11:42 02/15/19 17:15 Apresoline IV 20 mg Q6H PRN Administration give for sbp>165 or/and dbp>96 Sodium Chloride 1,000 mls @ 75 mls/hr 02/13/19 15:00 02/17/19 00:22 Nacl 0.45% 1000 Ml IV 75 mls/hr DIRECT MARYELLEN Administration Latanoprost 1 drops 02/13/19 18:00 02/16/19 18:42 Latanoprost 0.005% OU 1 drops QPM MARYELLEN Administration Levetiracetam 1,000 mg 02/13/19 22:00 02/17/19 09:27 Keppra PO 1,000 mg BID MARYELLEN Administration Lisinopril 40 mg 02/14/19 13:00 02/17/19 09:27 Zestril PO 40 mg QDAY MARYELLEN Administration Lorazepam 2 mg 02/13/19 15:33 02/16/19 04:03 Ativan IV 2 mg Q1H PRN Administration CIWA-Ar 8-15 Magnesium Hydroxide 30 ml 02/13/19 15:00 Milk Of Magnesia PO Q4H PRN Constipation Metoclopramide HCl 10 mg 02/13/19 15:00 Reglan PO Q6H PRN Nausea And Vomiting Nifedipine 60 mg 02/14/19 13:00 02/17/19 09:27 Procardia Xl PO 60 mg Q12HR MARYELLEN Administration Ondansetron HCl 4 mg 02/13/19 14:43 Zofran IV Q8H PRN Nausea And Vomiting Promethazine HCl 25 mg 02/13/19 15:00 Phenergan ND Q6H PRN Nausea And Vomiting Sertraline HCl 50 mg 02/13/19 22:00 02/16/19 22:07 Zoloft PO 50 mg QHS MARYELLEN Administration Sodium Chloride 10 ml 02/13/19 22:00 02/17/19 09:28 Sodium Chloride Flush Syringe 10 Ml IV 10 ml BID MARYELLEN Administration Sodium Chloride 10 ml 02/13/19 14:43 Sodium Chloride Flush Syringe 10 Ml IV PRN PRN LINE FLUSH Thiamine HCl 100 mg 02/14/19 10:00 02/17/19 09:27 Vitamin B-1 PO 100 mg QDAY MARYELLEN Administration Nutrition/Malnutrition Assess - Dietary Evaluation Nutrition/Malnutrition Findings: Nutrition Notes Start: 02/15/19 15:39 Freq: Status: Active Protocol: Document 02/17/19 09:08 LP (Rec: 02/17/19 09:13 LP [id number]) Nutrition Notes Initial or Follow up Reassessment Current Diagnosis Hypertension,Stroke Other Pertinent Diagnosis Seizure disorder, encephalopathy Current Diet Mechanical soft cardiac with Ensure Enlive daily Labs/Tests Reviewed Pertinent Medications Reviewed Height 6 ft Weight 62.1 kg [place] Body Weight (kg) 80.90 BMI 18.6 Weight change and time frame Unsure if wt is correct. Subjective/Other Information Pt speaks Surinamese. Pt eating breakfast well this AM. Has great appetite per RN. Percent of energy/protein needs met: 100%/100% Burn Absent Trauma Absent #1 Nutrition Diagnosis Inadequate oral intake As Evidenced by Signs and Symptoms Consuming 100% of meals and supplement Diagnosis Progress(for reassessment Improved documentation) Is patient on ventilator? No Is Patient Ambulatory and/or Out of Bed No REE-([place]-confined to bed) 1773.720 Kcal/Kg value to use for calculation 35 Approximate Energy Requirements Using 2174 kcal/Kg Calculation Used for Recommendations Kcal/kg Additional Notes Protein Needs: 70-88g (1.2-1. 5g/kg) Fluid Needs: 1 ml/kcal Nutrition Intervention Change Diet Order: Mech soft, Cardiac Add Supplement/Snack (indicate name/kcal Ensure Enlive Vanilla 1 daily /protein ) Provides kCal: 350 Provides Protein (gm) 20 Goal #1 Meet at least 75% of calorie and protein needs via PO and ONS intakes Anticipated Discharge Needs: Mech soft diet, Cardiac Follow-Up By: 02/24/19 Additional Comments Follow for stable intakes
--- NOTE | 2019-02-17 17:03 | Consultation ---
History of Present Illness - Reason for Consult Consult date: 02/16/19 Carotid stenosis - History of Present Illness The pt is unable to provide history, there is no family present, therefore the history has been taken from the medical record. This pt is a 58yo (hungarian speaking/non-Arabic speaking) male who presented to the [facility] ER on 02/13/19 with AMS and diffuse weakness requiring assistance to ambulate. Work up initiated and it was determined that the pt was taking double the perscribed amount of anti-seizure medications (dilantin). Poison control was contacted, and their recommendations followed. As part of the work up a carotid duplex was ordered. This is reported as: FINDINGS: The right common carotid artery demonstrates normal sonographic appearance and flow velocity with peak systolic velocity 80 cm/s and diastolic velocity 20 cm/s There is mild intimal thickening at the carotid bulb. At the mid right ICA peak systolic velocity 84 cm/s with end-diastolic velocity 20 cm/s. There is some intimal plaque within the left common carotid artery systolic velocity is 1 20 cm/s and end-diastolic velocity of 18 cm/s There is hard soft plaque within the left proximal ICA. Elevated peak systolic velocity 1 59 cm per sec end-diastolic velocity 40 cm/s Spectral broadening noted Antegrade flow seen within both vertebral arteries IMPRESSION: Minimal plaque at the right carotid bulb was 50% stenosis Confirmation and elevated velocities within the proximal left ICA 50-79% stenosis range by velocity.. A vascular surgery consult has been requested to further evaluate. He moves all 4 extremities to command. No focal deficits appreciated. Review of the home medications listed, it does not appear that he takes any sort of home meds. He is listed as taking Pravastatin at home, it's unclear if he is compliant. Past History Past Medical History: hypertension, seizures Past Surgical History: Other (Left distal forearm amputation, Right leg surgery but specifics not listed, Glacoma surgery) Social history: single, lives with family, smoking, alcohol abuse Family history: hypertension Medications and Allergies Allergies Allergy/AdvReac Type Severity Reaction Status Date / Time No Known Allergies Allergy Unverified 03/05/15 10:54 Home Medications Medication Instructions Recorded Confirmed Last Taken Type Folic Acid [Folvite] 1 mg PO QDAY 02/07/19 02/14/19 Unknown History Carvedilol [Coreg] 12.5 mg PO BID #60 tablet 02/09/19 02/14/19 Unknown Rx Folic Acid [Folvite] 1 mg PO DAILY #30 tablet 02/09/19 02/14/19 Unknown Rx Phenytoin Sodium Extended 300 mg PO BID #60 capsule 02/09/19 02/14/19 Unknown Rx Phenytoin [Dilantin] 300 mg PO BID #60 capsule.er 02/09/19 02/14/19 Unknown Rx Pravastatin [Pravachol] 40 mg PO QHS #30 tablet 02/09/19 02/14/19 Unknown Rx Sertraline [Zoloft] 50 mg PO QHS #60 tablet 02/09/19 02/14/19 Unknown Rx Thiamine [Vitamin B-1] 100 mg PO QDAY #30 tablet 02/09/19 02/14/19 Unknown Rx amLODIPine [Norvasc] 10 mg PO DAILY #30 tablet 02/09/19 02/14/19 Unknown Rx levETIRAcetam [Keppra TAB] 1,000 mg PO BID #60 tablet 02/09/19 02/14/19 Unknown Rx Losartan [Cozaar] 100 mg PO QDAY 02/14/19 02/14/19 Unknown History Active Meds: Active Medications Acetaminophen (Tylenol) 650 mg PO Q4H PRN PRN Reason: Pain MILD(1-3)/Fever >100.5/KAM Albuterol (Proventil) 2.5 mg IH Q4HRT PRN PRN Reason: Shortness Of Breath Aspirin (Baby Aspirin) 81 mg PO QDAY [facility] Last Admin: 02/17/19 09:27 Dose: 81 mg Documented by: Atorvastatin Calcium (Lipitor) 40 mg PO QHS [facility] Last Admin: 02/16/19 22:06 Dose: 40 mg Documented by: Bisacodyl (Dulcolax) 10 mg DE QDAY PRN PRN Reason: Constipation Last Admin: 02/15/19 18:19 Dose: 10 mg Documented by: Carvedilol (Coreg) 12.5 mg PO BID [facility] Last Admin: 02/17/19 09:28 Dose: 12.5 mg Documented by: Cyproheptadine HCl (Periactin) 4 mg PO DAILY [facility] Last Admin: 02/17/19 09:26 Dose: 4 mg Documented by: Folic Acid (Folvite) 1 mg PO QDAY [facility] Last Admin: 02/17/19 09:27 Dose: 1 mg Documented by: Hydralazine HCl (Apresoline) 20 mg IV Q6H PRN PRN Reason: give for sbp>165 or/and dbp>96 Last Admin: 02/15/19 17:15 Dose: 20 mg Documented by: Sodium Chloride (Nacl 0.45% 1000 Ml) 1,000 mls @ 75 mls/hr IV DIRECT [facility] Last Admin: 02/17/19 15:31 Dose: 75 mls/hr Documented by: Latanoprost (Latanoprost 0.005%) 1 drops OU QPM [facility] Last Admin: 02/16/19 18:42 Dose: 1 drops Documented by: Levetiracetam (Keppra) 1,000 mg PO BID [facility] Last Admin: 02/17/19 09:27 Dose: 1,000 mg Documented by: Lisinopril (Zestril) 40 mg PO QDAY [facility] Last Admin: 02/17/19 09:27 Dose: 40 mg Documented by: Lorazepam (Ativan) 2 mg IV Q1H PRN PRN Reason: CIWA-Ar 8-15 Last Admin: 02/16/19 04:03 Dose: 2 mg Documented by: Magnesium Hydroxide (Milk Of Magnesia) 30 ml PO Q4H PRN PRN Reason: Constipation Metoclopramide HCl (Reglan) 10 mg PO Q6H PRN PRN Reason: Nausea And Vomiting Nifedipine (Procardia Xl) 60 mg PO Q12HR [facility] Last Admin: 02/17/19 09:27 Dose: 60 mg Documented by: Ondansetron HCl (Zofran) 4 mg IV Q8H PRN PRN Reason: Nausea And Vomiting Promethazine HCl (Phenergan) 25 mg DE Q6H PRN PRN Reason: Nausea And Vomiting Sertraline HCl (Zoloft) 50 mg PO QHS [facility] Last Admin: 02/16/19 22:07 Dose: 50 mg Documented by: Sodium Chloride (Sodium Chloride Flush Syringe 10 Ml) 10 ml IV BID [facility] Last Admin: 02/17/19 09:28 Dose: 10 ml Documented by: Sodium Chloride (Sodium Chloride Flush Syringe 10 Ml) 10 ml IV PRN PRN PRN Reason: LINE FLUSH Thiamine HCl (Vitamin B-1) 100 mg PO QDAY [facility] Last Admin: 02/17/19 09:27 Dose: 100 mg Documented by: Review of Systems ROS unobtainable: due to mental status (unobtainable) Exam - Constitutional Vitals: Temp Pulse Resp BP Pulse Ox 98.0 F 64 18 195/76 95 02/17/19 15:49 02/17/19 15:49 02/17/19 15:49 02/17/19 15:49 02/17/19 15:49 General appearance: Present: no acute distress - EENT Eyes: Present: EOM intact ENT: hearing intact - Neck Neck: Present: supple - Respiratory Respiratory effort: normal - Extremities Extremities: no ischemia, normal temperature - Psychiatric Psychiatric: appropriate mood/affect, cooperative - Neurologic Neurologic: no focal deficits, moves all extremities Results - Labs CBC & Chem 7: 02/17/19 04:58 02/17/19 04:58 Labs: Abnormal lab results 02/17/19 02/17/19 Range/Units 04:58 13:07 Phenytoin 25.8 H 20.8 H (10.0-20.0) ug/mL Assessment and Plan This pt presented with AMS and diffuse weakness. Work up was initiated and revealed a Digoxin toxicity due to an accidental overdose. Poison control and neurology have been consulted. As part of his work up a carotid duplex was ordered. This shows a modest amount of irregular plaque in the left internal carotid artery which probably causes about 50% diameter reduction. There is no significant stenosis in the right internal carotid artery.The left carotid artery stenosis does not appear to be symptomatic at this time. Medical treatment with antiplatelet agents and cholesterol lowering agents would be appropriate if clinically possible in this patient with recurrent seizures. No surgical intervention needed at this time. - Patient Problems (1) Asymptomatic stenosis of left carotid artery without infarction Current Visit: Yes Status: Acute (2) Accidental medication overdose Current Visit: Yes Status: Acute (3) Altered mental status Current Visit: Yes Status: Acute (4) Glaucoma Current Visit: No Status: Chronic (5) Seizure disorder Current Visit: No Status: Chronic
[2019-02-17] MEDS: APRESOLINE IV PRN (17:50)
[2019-02-17] MEDS: LATANOPROST 0.005% OU SCH (17:57)
[2019-02-17] MEDS: ZOLOFT PO SCH (22:17)
[2019-02-18] MEDS: APRESOLINE IV PRN ×2 (05:53→12:28)
[2019-02-18 07:52] LABS: Hematocrit 40.8 % (35.5-45.6); Hemoglobin 13.9 gm/dl (11.8-15.2); Mean Corpuscular HGB Conc 34 % (32-34); Mean Corpuscular Volume 88 fl (84-94); Platelet Count 347 K/mm3 (140-440); Red Blood Count 4.65 M/mm3 (3.65-5.03); Red Cell Distribution Width 14.7 % (13.2-15.2)
[2019-02-18 08:16] LABS: BUN/Creatinine Ratio 11; Blood Urea Nitrogen 8 mg/dL (9-20); Calcium 8.9 mg/dL (8.4-10.2); Hemolysis Index 16
[2019-02-18] MEDS: KEPPRA PO SCH (09:51)
[2019-02-18] MEDS: FOLVITE PO SCH (09:51)
[2019-02-18] MEDS: ZESTRIL PO SCH (09:51)
[2019-02-18] MEDS: BABY ASPIRIN PO SCH (09:51)
[2019-02-18] MEDS: COREG PO SCH (09:52)
[2019-02-18] MEDS: SODIUM CHLORIDE FLUSH SYRINGE 10 ML IV SCH (09:52)
[2019-02-18] MEDS: PROCARDIA XL PO SCH (09:52)
[2019-02-18] MEDS: VITAMIN B-1 PO SCH (09:53)
[2019-02-18] MEDS: PERIACTIN PO SCH (10:00)
[2019-02-18] MEDS ORDERED: APRESOLINE PO SCH (14:00)
--- NOTE | 2019-02-18 15:14 | Discharge Summary ---
Providers - Providers Date of Admission: 02/13/19 16:27 Date of discharge: 02/18/19 Attending physician: JON GARCÍA 02/13/19 15:00 Occupational Therapy Evaluate and Treat [CONS] Routine Comment: Reason For Exam: Neuro deficits Physical Therapy Evaluation and Treat [CONS] Routine Comment: Reason For Exam: Neuro deficits 02/13/19 15:03 Consult to Physician [CONS] Routine Comment: Consulting Provider: NINO LANDEROS Physician Instructions: Reason For Exam: CVA 02/14/19 11:37 Speech Therapy Evaluation and Treat [CONS] Routine Reason For Exam: dysphagia 02/14/19 15:54 Consult to Physician [CONS] Routine Comment: Consulting Provider: NINO LANDEROS Physician Instructions: Reason For Exam: elevated phenytoin level, altered 02/15/19 22:58 Midline [Consult to PICC Line RN] [CONS] Routine Reason For Exam: hard stick/ IV Meds Type Line:: Midline 02/16/19 13:23 Consult to Physician [CONS] Routine Comment: Consulting Provider: SANDRA WATSON Physician Instructions: Reason For Exam: Carotid artery stenosis [facility] Condition: Stable Hospital course: Patient is a 58 yo Salvadorean speaking man with a history of HTN, Seizure Disorder, ETOH Dependence and prior NIcotine Dependence who presented to ED for unintentional phenytoin overdose and ams. he was just discharged from here on 02/09/19. Dilantin level elevated hence the admission. Sister Tami was the medical interpreter. * Brain MRI, no acute finding, chronic changes * Brain MRA unremarkable * Carotid Doppler: left ICA stenosis 50-79% Discharge Diagnoses: Carotid artery stenosis: consult Vascular surgery, add aspirin, add lipitor Dilatin/phenytoin toxicity: stop drug and observe, supportive care, serial level checks, on IVFs Acute toxic Encephalopathy due to Dilantin Seizure disorder: cont keppra Hx of EtOH dependence and tobacco dependence: has been sober and off tobacco x 4 years, DVT prophylaxis: SCD to BLE while in bed, Disposition: home Disposition: DC-01 TO HOME OR SELFCARE Time spent for discharge: 34 minutes Core Measure Documentation - Palliative Care Palliative Care/ Comfort Measures: Not Applicable - Core Measures Any of the following diagnoses?: none - VTE Discharge Requirements Deep Vein Thrombosis/Pulmonary Embolism Present on Admission: No Has pt received <5 days of overlap therapy or INR<2.0: No Anticoagulant overlap therapy prescribed at discharge: No Contraindication No Overlap Therapy order at DC: Not Indicated Exam - Physical Exam Narrative exam: Gen: WDWN, NAD, Awake, Alert, Orientated x 3 HEENT: NCAT, EOMI, PERRL, OP Clear Neck: supple, no adenopathy, no thyromegaly, no JVD CVS/Heart: RRR, normal S1S2, pulses present bilaterally Chest/Lungs: CTA B, Symmetrical chest expansion, good air entry bilaterally GI/Abdomen: soft, NTND, good bowel sounds, no guarding or rebound /Bladder: no suprapubic tenderness, no CVA or paraspinal tenderness Extermity/Skin: no c/c/e, no obvious rash MSK: FROM x 4 Neuro: CN 2-12 grossly intact, no new focal deficits Psych: calm - Constitutional Vitals: Temp Pulse Resp BP Pulse Ox 98.0 F 97 H 20 187/90 92 02/18/19 11:41 02/18/19 11:41 02/18/19 11:41 02/18/19 12:28 02/18/19 11:41 Plan Activity: up only with assistance, fall precautions, other (no strenous activity until cleared by PCP) Diet: advance as tolerated Follow up with: ANGELIQUE MARTINEZ MD [Primary Care Provider] - 3-5 Days FAISAL ASHFORD MD [Staff Physician] - 7 Days SANDRA WATSON MD [Staff Physician] - 14 Days Prescriptions: AtorvaSTATin [Lipitor] 40 mg PO QHS #30 tablet Aspirin [Aspirin BABY CHEW TAB] 81 mg PO QDAY #30 tab.chew levETIRAcetam [Keppra TAB] 1,000 mg PO BID #60 tablet
[2019-02-18 18:42] VITALS: BP 165/93
== END 2019-02-18 18:45 | disposition home health service (06) | DRG 917 ==
LOC: ED 10:00 → 4A 16:27 → 3A 02-17 18:34
PROVIDERS: ADMIT Internal Medicine; ATTEND Internal Medicine
PROC: 05HY33Z Insertion of Infusion Device into Upper Vein, Percutaneous Approach (ICD-10-PCS; principal; 2019-02-16)
DX: T42.0X1A Poisoning by hydantoin derivatives, accidental (unintentional), initial encounter (principal); G92 Toxic encephalopathy; T42.0X5A Adverse effect of hydantoin derivatives, initial encounter; G40.909 Epilepsy, unspecified, not intractable, without status epilepticus; I65.29 Occlusion and stenosis of unspecified carotid artery; I10 Essential (primary) hypertension; F10.20 Alcohol dependence, uncomplicated; H40.9 Unspecified glaucoma; F17.200 Nicotine dependence, unspecified, uncomplicated; Y92.89 Other specified places as the place of occurrence of the external cause; Z71.6 Tobacco abuse counseling; Z82.49 Family history of ischemic heart disease and other diseases of the circulatory system; Z79.899 Other long term (current) drug therapy
CPT/HCPCS: 36415; 70450; 70544; 70551; 76857; 80048; 80053; 80061; 80076; 80177; 80185; 80307; 80320; 81001; 82140; 82550; 82553; 82962; 84439; 84443; 84484; 85025; 85027; 93005; 93010; 93306; 93880; 94760; 95819; G0378; A9270-GY; G0480; J0360; J1953; J2060; J3411; J7030

== ENCOUNTER 2022-05-24 17:52 | Inpatient (IN) | payer MEDICAID ==
[2022-05-24] MEDS ORDERED: SODIUM CHLORIDE 0.9% 500 ML 500 ML IV ONE (18:06)
[2022-05-24] MEDS ORDERED: methylPREDNISolone Sod Succinate 125 MG/2 ML INJ IV ONE (18:20)
[2022-05-24] MEDS ORDERED: ALBUTEROL 2.5 MG/3 ML NEBU IH ONE ×2 (18:20→21:40)
[2022-05-24] MEDS ORDERED: IPRATROPIUM 0.02% NEBU 2.5 ML IH ONE ×2 (18:20→21:40)
--- NOTE | 2022-05-24 18:20 | Emergency Department Report ---
ED Altered Mental Status HPI - General Chief Complaint: Dyspnea/Respdistress Stated Complaint: UNRESPONSIVE Time Seen by Provider: 05/24/22 18:05 Source: EMS Mode of arrival: Stretcher Limitations: Altered Mental Status, Physical Limitation - History of Present Illness Initial Comments: 61-year-old male with history of CVA, seizure disorder, encephalopathy, and esophageal cancer with mets presents with altered mental status and respiratory distress noticed by his sister at approximately 5 PM, today. Patient was last known normal at 2 PM. Patient found to be hypoglycemic by EMS, and was given IV D50. States that the patient has been getting chemotherapy [id number] gets PEG feeds, regularly. Patient is only able to swallow pills and some liquids. According to the sister, the patient does not want to be intubated, but other resuscitative efforts are wanted by the family. The patient is altered, so cannot give any history. Patient's sister gives history and ROS information (Tami AbigailDeja [id number] - Related Data Home Medications Medication Instructions Recorded Confirmed Last Taken Folic Acid [Folvite] 1 mg PO QDAY 02/07/19 02/14/19 Unknown Losartan [Cozaar] 100 mg PO QDAY 02/14/19 02/14/19 Unknown Previous Rx's Medication Instructions Recorded Last Taken Type Folic Acid [Folvite] 1 mg PO DAILY #30 tablet 02/09/19 Unknown Rx Pravastatin [Pravachol] 40 mg PO QHS #30 tablet 02/09/19 Unknown Rx Sertraline [Zoloft] 50 mg PO QHS #60 tablet 02/09/19 Unknown Rx Thiamine [Vitamin B-1] 100 mg PO QDAY #30 tablet 02/09/19 Unknown Rx amLODIPine 10 mg PO DAILY #30 tablet 02/09/19 Unknown Rx carvediloL [Coreg] 12.5 mg PO BID #60 tablet 02/09/19 Unknown Rx Aspirin [Aspirin BABY CHEW TAB] 81 mg PO QDAY #30 tab.chew 02/18/19 Unknown Rx AtorvaSTATin [Lipitor] 40 mg PO QHS #30 tablet 02/18/19 Unknown Rx levETIRAcetam [Keppra TAB] 1,000 mg PO BID #60 tablet 02/18/19 Unknown Rx Allergies Allergy/AdvReac Type Severity Reaction Status Date / Time No Known Allergies Allergy Unverified 03/05/15 10:54 ED Review of Systems ROS: Stated complaint: UNRESPONSIVE Other details as noted in HPI Comment: Unobtainable due to pts medical conditions (Altered mental status and respiratory distress) Constitutional: weakness Respiratory: shortness of breath, wheezing Gastrointestinal: as per HPI Neurological: other (Altered mental status) Psychiatric: denies: depression ED Past Medical Hx - Past Medical History Hx Hypertension: Yes Hx Congestive Heart Failure: No Hx Diabetes: No Hx Deep Vein Thrombosis: No Hx Seizures: Yes Hx Asthma: No Hx COPD: No Hx HIV: No Additional medical history: ETOH abuse - Surgical History Hx Pacemaker: No Hx Internal Defibrillator: No Additional Surgical History: Left arm amputation, Right leg surgery, Glaucoma surgery - Social History Smoking Status: Former Smoker (none 4 years) Substance Use Type: None (denies illicit drug use) - Medications Home Medications: Home Medications Medication Instructions Recorded Confirmed Last Taken Type Folic Acid [Folvite] 1 mg PO QDAY 02/07/19 02/14/19 Unknown History Folic Acid [Folvite] 1 mg PO DAILY #30 tablet 02/09/19 02/14/19 Unknown Rx Pravastatin [Pravachol] 40 mg PO QHS #30 tablet 02/09/19 02/14/19 Unknown Rx Sertraline [Zoloft] 50 mg PO QHS #60 tablet 02/09/19 02/14/19 Unknown Rx Thiamine [Vitamin B-1] 100 mg PO QDAY #30 tablet 02/09/19 02/14/19 Unknown Rx amLODIPine 10 mg PO DAILY #30 tablet 02/09/19 02/14/19 Unknown Rx carvediloL [Coreg] 12.5 mg PO BID #60 tablet 02/09/19 02/14/19 Unknown Rx Losartan [Cozaar] 100 mg PO QDAY 02/14/19 02/14/19 Unknown History Aspirin [Aspirin BABY CHEW TAB] 81 mg PO QDAY #30 tab.chew 02/18/19 Unknown Rx AtorvaSTATin [Lipitor] 40 mg PO QHS #30 tablet 02/18/19 Unknown Rx levETIRAcetam [Keppra TAB] 1,000 mg PO BID #60 tablet 02/18/19 Unknown Rx ED Physical Exam - General Limitations: Altered Mental Status, Physical Limitation General appearance: obtunded, in distress - Head Head exam: Present: atraumatic - Eye Eye exam: Absent: normal appearance, PERRL, EOMI Pupils: Present: unequal - ENT ENT exam: Present: mucous membranes dry - Neck Neck exam: Present: normal inspection, other (No stridor or bruit) - Respiratory Respiratory exam: Present: respiratory distress, wheezes, rhonchi, accessory muscle use, prolonged expiratory - Cardiovascular Cardiovascular Exam: Present: tachycardia - GI/Abdominal GI/Abdominal exam: Present: soft, normal bowel sounds, other (peg tube in place). Absent: distended, tenderness, guarding, rebound, rigid - Extremities Exam Extremities exam: Present: other (left arm amputation) - Neurological Exam Neurological exam: Present: altered, other (Unable to fully assess secondary to patient being obtunded) - Psychiatric Psychiatric exam: Present: other (Unable to assess secondary to altered mental status) - Skin Skin exam: Present: warm, pallor ED Course Vital Signs 05/24/22 05/24/22 05/24/22 18:19 19:35 22:55 Pulse Rate 80 Pulse Rate [ 78 Bilateral Throughout] Respiratory 24 Rate Respiratory 24 Rate [Bilateral Throughout] Blood Pressure 148/100 O2 Sat by Pulse 65 L 93 Oximetry - Reevaluation(s) Reevaluation #1: 05/24/22 19:18 Patient initially had normal vital signs, but now his oxygen saturation has diminished, and his respiratory rate has increased. Patient's sister still does not want the patient to be intubated.. Patient's sister has called his other family, and they agreed that they still do not want him to be intubated, but if other resuscitative efforts are required, they are okay with him receiving chest compressions and medications for resuscitation. 05/24/22 20:52 Reevaluation #2: 05/24/22 20:53 Patient is still not responsive, but vital signs remain stable on bipap. Patient's sister has signed a DO NOT RESUSCITATE order, which has been witnessed by myself, another physician, and the nurse. - Lab Data Result diagrams: 05/24/22 18:39 05/24/22 18:39 Lab Results 05/24/22 05/24/22 05/24/22 Range/Units 18:22 18:39 18:39 WBC 5.7 (4.5-11.0) K/mm3 RBC 4.94 (3.65-5.03) M/mm3 Hgb 15.3 H (11.8-15.2) gm/dl Hct 47.2 H (35.5-45.6) % MCV 96 H (84-94) fl MCH 31 (28-32) pg MCHC 32 (32-34) % RDW 20.2 H (13.2-15.2) % Plt Count 147 (140-440) K/mm3 Lymph % (Auto) 31.1 (13.4-35.0) % [place] % (Auto) 2.2 (0.0-7.3) % Eos % (Auto) 0.1 (0.0-4.3) % Baso % (Auto) 0.8 (0.0-1.8) % Lymph # (Auto) 1.8 (1.2-5.4) K/mm3 [place] # (Auto) 0.1 (0.0-0.8) K/mm3 Eos # (Auto) 0.0 (0.0-0.4) K/mm3 Baso # (Auto) 0.0 (0.0-0.1) K/mm3 Seg Neutrophils % 65.8 (40.0-70.0) % Seg Neutrophils # 3.8 (1.8-7.7) K/mm3 PT 14.0 (12.2-14.9) Sec. INR 0.95 (0.87-1.13) APTT 32.1 (24.2-36.6) Sec. Sodium (137-145) mmol/L Potassium (3.6-5.0) mmol/L Chloride (98-107) mmol/L Carbon Dioxide (22-30) mmol/L Anion Gap mmol/L BUN (9-20) mg/dL Creatinine (0.8-1.3) mg/dL Estimated GFR ml/min BUN/Creatinine Ratio % Glucose (75-100) mg/dL POC Glucose 294 H (70-105) mg/dL Lactic Acid (0.7-2.0) mmol/L Calcium (8.4-10.2) mg/dL Total Bilirubin (0.1-1.2) mg/dL AST (5-40) units/L ALT (7-56) units/L Alkaline Phosphatase (35-129) units/L Ammonia (25-60) umol/L Troponin T (0.00-0.029) ng/mL Total Protein (6.3-8.2) g/dL Albumin (3.9-5) g/dL Albumin/Globulin Ratio % 05/24/22 05/24/22 05/24/22 Range/Units 18:39 18:39 18:39 WBC (4.5-11.0) K/mm3 RBC (3.65-5.03) M/mm3 Hgb (11.8-15.2) gm/dl Hct (35.5-45.6) % MCV (84-94) fl MCH (28-32) pg MCHC (32-34) % RDW (13.2-15.2) % Plt Count (140-440) K/mm3 Lymph % (Auto) (13.4-35.0) % [place] % (Auto) (0.0-7.3) % Eos % (Auto) (0.0-4.3) % Baso % (Auto) (0.0-1.8) % Lymph # (Auto) (1.2-5.4) K/mm3 [place] # (Auto) (0.0-0.8) K/mm3 Eos # (Auto) (0.0-0.4) K/mm3 Baso # (Auto) (0.0-0.1) K/mm3 Seg Neutrophils % (40.0-70.0) % Seg Neutrophils # (1.8-7.7) K/mm3 PT (12.2-14.9) Sec. INR (0.87-1.13) APTT (24.2-36.6) Sec. Sodium 135 L (137-145) mmol/L Potassium 5.9 H (3.6-5.0) mmol/L Chloride 97.1 L (98-107) mmol/L Carbon Dioxide 25 (22-30) mmol/L Anion Gap 19 mmol/L BUN 15 (9-20) mg/dL Creatinine 0.6 L (0.8-1.3) mg/dL Estimated GFR > 60 ml/min BUN/Creatinine Ratio 25 % Glucose 271 H (75-100) mg/dL POC Glucose (70-105) mg/dL Lactic Acid 2.20 H* (0.7-2.0) mmol/L Calcium 9.2 (8.4-10.2) mg/dL Total Bilirubin 0.40 (0.1-1.2) mg/dL AST 104 H (5-40) units/L ALT 94 H (7-56) units/L Alkaline Phosphatase 209 H (35-129) units/L Ammonia 108.0 H (25-60) umol/L Troponin T < 0.010 (0.00-0.029) ng/mL Total Protein 8.3 H (6.3-8.2) g/dL Albumin 4.8 (3.9-5) g/dL Albumin/Globulin Ratio 1.4 % 05/24/22 sinus rhythm at 75 with left atrial enlargement, normal axis, no ST-T wave changes - Radiology Data Radiology results: report reviewed cxr: IMPRESSION: Suspected bilateral pneumonia. Signer Name: Surya Ponce MD - Medical Decision Making This is a 61-year-old male with a history of esophageal cancer with mets acute altered mental status and respiratory distress with history obtained from EMS and patient's sister. Initial vital signs on nonrebreather were within normal limits, but patient was obtunded with agonal respirations, diffuse wheezing, and low O2 saturations when oxygen was decreased. Patient's blood work was remarkable for elevated ammonia (108), hyperkalemia (5.9), and elevated lactic acid. Chest x-ray was remarkable for a Multi lobar pneumonia. Was placed on BiPAP, received IV fluids and also received lactulose her PEG. Sister remained at the bedside throughout the patient's stay, and spoke with the patient's family in [place]. Understanding the gravity of the patient's condition, and his recent verbalization of desire to not be intubated, the patient's sister a DO NOT RESUSCITATE order. This was witnessed by myself, another physician, and a nurse. Patient and sister verbalized understanding of the patient's condition and his diagnoses, and is amenable to the plan to admit the patient for further evaluation. Critical Care Time: Yes Critical care time in (mins) excluding proc time.: 51 Critical care attestation.: If time is entered above; I have spent that time in minutes in the direct care of this critically ill patient, excluding procedure time. ED Disposition Clinical Impression: Hepatic encephalopathy, Hyperkalemia Altered mental status Qualifiers: Altered mental status type: unspecified Qualified Code(s): R41.82 - Altered mental status, unspecified Bilateral pneumonia Qualifiers: Pneumonia type: due to unspecified organism Lung location: unspecified part of lung Qualified Code(s): J18.9 - Pneumonia, unspecified organism Disposition: 09 ADMITTED INPATIENT Is pt being admited?: Yes Condition: Critical Instructions: Bacterial Pneumonia (ED) Time of Disposition: 21:33
--- NOTE | 2022-05-24 18:45 | XRay Report ---
CHEST 1 VIEW 05/24/2022 5:31 PM INDICATION / CLINICAL INFORMATION: Altered Mental Status. COMPARISON: 2 views of the chest from 02/08/2019. FINDINGS: SUPPORT DEVICES: A right internal jugular vein Port-A-Cath terminates over the cavoatrial junction. HEART / MEDIASTINUM: No significant abnormality. LUNGS / PLEURA: There are multifocal bilateral airspace opacities. No significant pleural effusion. N o pneumothorax. ADDITIONAL FINDINGS: No significant additional findings. IMPRESSION: Suspected bilateral pneumonia. Signer Name: Surya Ponce MD Signed: 05/24/2022 6:41 PM Workstation Name: [id number]
[2022-05-24 19:19] LABS: Basophils % (Auto) 0.8 % (0.0-1.8); Eosinophils % (Auto) 0.1 % (0.0-4.3); Hematocrit 47.2 % (35.5-45.6); Hemoglobin 15.3 gm/dl (11.8-15.2); Lymphocytes # (Auto) 1.8 K/mm3 (1.2-5.4); Lymphocytes % (Auto) 31.1 % (13.4-35.0); Mean Corpuscular HGB Conc 32 % (32-34); Mean Corpuscular Volume 96 fl (84-94); Monocytes # (Auto) 0.1 K/mm3 (0.0-0.8); Monocytes % (Auto) 2.2 % (0.0-7.3); Red Blood Count 4.94 M/mm3 (3.65-5.03)
[2022-05-24 19:24] LABS: Platelet Count 147 K/mm3 (140-440); Red Cell Distribution Width 20.2 % (13.2-15.2)
[2022-05-24 19:32] LABS: INR 0.95 (0.87-1.13); Partial Thromboplastin Time 32.1 Sec. (24.2-36.6)
[2022-05-24 19:55] LABS: Alanine Aminotransferase 94 units/L (7-56); Albumin 4.8 g/dL (3.9-5); Blood Urea Nitrogen 15 mg/dL (9-20); Calcium 9.2 mg/dL (8.4-10.2); Hemolysis Index 53
[2022-05-24 19:59] LABS: BUN/Creatinine Ratio 25
[2022-05-24] MEDS ORDERED: LACTULOSE 20 GM/30 ML ORAL LIQD FEEDTUBE ONE (21:41)
[2022-05-24] MEDS ORDERED: SODIUM BICARB 8.4% 50 MEQ/50 ML SYRINGE IV ONE (21:42)
[2022-05-24] MEDS ORDERED: ONDANSETRON 4 MG/2 ML INJ IV PRN (22:45)
[2022-05-24] MEDS ORDERED: MORPHINE 4 MG/1 ML INJ IV PRN (22:45)
[2022-05-24] MEDS ORDERED: ACETAMINOPHEN 325 MG TAB PO PRN (22:45)
[2022-05-24] MEDS ORDERED: ALBUTEROL 2.5 MG/3 ML NEBU IH PRN (22:45)
[2022-05-24] MEDS ORDERED: MORPHINE 2 MG/1 ML INJ IV PRN (22:45)
[2022-05-24] MEDS ORDERED: THIAMINE 100 MG, FOLIC ACID 1 MG, MULTIPLE VITAMIN INJ, ADULT 10 ML in SODIUM CHLORIDE ... IV ONE (22:48)
[2022-05-24] MEDS ORDERED: SODIUM POLYSTYRENE 15 GM/60 ML ORAL LIQD PO ONE (22:49)
[2022-05-24] MEDS ORDERED: LACTULOSE 20 GM/30 ML ORAL LIQD PO PRN (22:50)
--- NOTE | 2022-05-24 22:55 | History and Physical Report ---
History of Present Illness Date of examination: 05/24/22 Date of admission: 05/24/22 Chief complaint: Dyspnea Respiratory distress History of present illness: 61-year-old male with history of esophageal cancer with mets presents with altered mental status and respiratory distress noticed by his sister at approximately 5 PM, today. Patient was last known normal at 2 PM. According to the sister, the patient does not want to be intubated, but other resuscitative e fforts are wanted by the family. The patient is altered, so cannot give any history. Patient found to be hypoglycemic by EMS, and was given IV D50. Patient's sister gives history and ROS information (Tami Rice [id number]. In the emergency room patient is found to have potassium of 5.9, lactic acid 2.20, glucose 294, AST 104, ALT 94 and alkaline phos 0.19 ammonia 108.0 chest x- ray shows pneumonia bilaterally. Patient initially had normal vital signs, but now his oxygen saturation has diminished, and his respiratory rate has increased. Patient's sister still does not want the patient to be intubated.. Patient's sister has called his other family, and they agreed that they still do not want him to be intubated, but if other resuscitative efforts are required, they are okay with him receiving chest compressions and medications for resuscitation.Patient is still not responsive, but vital signs remain stable on bipap. Patient's sister has signed a DO NOT RESUSCITATE order, which has been witnessed by myself, another physician, and the nurse. Past History Past Medical History: hypertension, seizures, other (Alcohol abuse) Past Surgical History: Other (Left arm amputation, Right leg surgery, Glaucoma surgery) Social history: other (Former smokerSmoking for the last 4 years,) Family history: hypertension Medications and Allergies Allergies Allergy/AdvReac Type Severity Reaction Status Date / Time No Known Allergies Allergy Unverified 03/05/15 10:54 Home Medications Medication Instructions Recorded Confirmed Last Taken Type Folic Acid [Folvite] 1 mg PO QDAY 02/07/19 02/14/19 Unknown History Folic Acid [Folvite] 1 mg PO DAILY #30 tablet 02/09/19 02/14/19 Unknown Rx Pravastatin [Pravachol] 40 mg PO QHS #30 tablet 02/09/19 02/14/19 Unknown Rx Sertraline [Zoloft] 50 mg PO QHS #60 tablet 02/09/19 02/14/19 Unknown Rx Thiamine [Vitamin B-1] 100 mg PO QDAY #30 tablet 02/09/19 02/14/19 Unknown Rx amLODIPine 10 mg PO DAILY #30 tablet 02/09/19 02/14/19 Unknown Rx carvediloL [Coreg] 12.5 mg PO BID #60 tablet 02/09/19 02/14/19 Unknown Rx Losartan [Cozaar] 100 mg PO QDAY 02/14/19 02/14/19 Unknown History Aspirin [Aspirin BABY CHEW TAB] 81 mg PO QDAY #30 tab.chew 02/18/19 Unknown Rx AtorvaSTATin [Lipitor] 40 mg PO QHS #30 tablet 02/18/19 Unknown Rx levETIRAcetam [Keppra TAB] 1,000 mg PO BID #60 tablet 02/18/19 Unknown Rx Active Meds: Active Medications Acetaminophen (Acetaminophen 325 Mg Tab) 650 mg PO Q4H PRN PRN Reason: Pain MILD(1-3)/Fever >100.5/KAM Albuterol (Albuterol 2.5 Mg/3 Ml Nebu) 2.5 mg IH Q3HRT PRN PRN Reason: Shortness Of Breath Albuterol/Ipratropium (Ipratropium/Albuterol Sulfate 3 Ml Ampul.Neb) 1 ampul IH Q6HRT MARYELLEN Amlodipine Besylate (Amlodipine 10 Mg Tab) 10 mg PO DAILY MARYELLEN Azithromycin (Azithromycin 250 Mg Tab) 250 mg PO QDAY MARYELLEN; Protocol Carvedilol (Carvedilol 12.5 Mg Tab) 12.5 mg PO BID MARYELLEN Famotidine (Famotidine 20 Mg/2 Ml Inj) 20 mg IV BID [facility] Folic Acid (Folic Acid 1 Mg Tab) 1 mg PO DAILY [facility] Sodium Chloride (Nacl 0.9% 1000 Ml) 1,000 mls @ 100 mls/hr IV DIRECT MARYELLEN Thiamine HCl 100 mg/ Folic Acid 1 mg/ Multivitamins/Minerals 10 ml/ Sodium Chloride 1,011.2 mls @ 250 mls/hr IV DAILY ONE Stop: 05/25/22 02:50 Ceftriaxone Sodium (Rocephin/Ns 2 Gm/100 Ml) 2 gm in 100 mls @ 200 mls/hr IV Q24H MARYELLEN; Protocol Lactulose (Lactulose 20 Gm/30 Ml Oral Liqd) 20 gm PO Q6H PRN PRN Reason: Constipation Levetiracetam (Levetiracetam 500 Mg Tab) 1,000 mg PO BID MARYELLEN Morphine Sulfate (Morphine 2 Mg/1 Ml Inj) 2 mg IV Q4H PRN PRN Reason: Pain, Moderate (4-6) Morphine Sulfate (Morphine 4 Mg/1 Ml Inj) 4 mg IV Q4H PRN PRN Reason: Pain , Severe (7-10) Ondansetron HCl (Ondansetron 4 Mg/2 Ml Inj) 4 mg IV Q8H PRN PRN Reason: Nausea And Vomiting Sertraline HCl (Sertraline 50 Mg Tab) 50 mg PO QHS MARYELLEN Sodium Chloride (Sodium Chloride 0.9% 10 Ml Flush Syringe) 10 ml IV BID MARYELLEN Sodium Chloride (Sodium Chloride 0.9% 10 Ml Flush Syringe) 10 ml IV PRN PRN PRN Reason: LINE FLUSH Sodium Polystyrene Sulfonate (Sodium Polystyrene 15 Gm/60 Ml Oral Liqd) 30 gm PO ONCE ONE Stop: 05/24/22 22:50 Thiamine HCl (Thiamine 100 Mg Tab) 100 mg PO QDAY [facility] Review of Systems All systems: negative Constitutional: other (Altered mental status, shortness of breath, respiratory distress) Exam - Constitutional Vitals: Temp Pulse Resp BP Pulse Ox 77 24 148/100 93 05/24/22 21:49 05/24/22 21:49 05/24/22 19:35 05/24/22 19:35 General appearance: Present: no acute distress, well-nourished - EENT Eyes: Present: PERRL ENT: hearing intact, clear oral mucosa - Neck Neck: Present: supple, normal ROM - Respiratory Respiratory effort: normal Respiratory: bilateral: CTA - Cardiovascular Heart Sounds: Present: S1 & S2. Absent: rub, click - Extremities Extremities: pulses symmetrical, No edema Peripheral Pulses: within normal limits - Abdominal General gastrointestinal: Present: soft, non-tender, non-distended, normal bowel sounds Male genitourinary: Present: normal - Integumentary Integumentary: Present: clear, warm, dry - Musculoskeletal Musculoskeletal: gait normal, strength equal bilaterally - Psychiatric Psychiatric: other (Patient is lethargic on BiPAP) - Neurologic Neurologic: CNII-XII intact, moves all extremities HEART Score - HEART Score Troponin: Troponin T < 0.010 ng/mL (0.00-0.029) 05/24/22 18:39 Results - Labs CBC & Chem 7: 05/24/22 18:39 05/24/22 18:39 Labs: Laboratory Last Values WBC 5.7 K/mm3 (4.5-11.0) 05/24/22 18:39 RBC 4.94 M/mm3 (3.65-5.03) 05/24/22 18:39 Hgb 15.3 gm/dl (11.8-15.2) H 05/24/22 18:39 Hct 47.2 % (35.5-45.6) H 05/24/22 18:39 MCV 96 fl (84-94) H 05/24/22 18:39 MCH 31 pg (28-32) 05/24/22 18:39 MCHC 32 % (32-34) 05/24/22 18:39 RDW 20.2 % (13.2-15.2) H 05/24/22 18:39 Plt Count 147 K/mm3 (140-440) 05/24/22 18:39 Lymph % (Auto) 31.1 % (13.4-35.0) 05/24/22 18:39 [place] % (Auto) 2.2 % (0.0-7.3) 05/24/22 18:39 Eos % (Auto) 0.1 % (0.0-4.3) 05/24/22 18:39 Baso % (Auto) 0.8 % (0.0-1.8) 05/24/22 18:39 Lymph # (Auto) 1.8 K/mm3 (1.2-5.4) 05/24/22 18:39 [place] # (Auto) 0.1 K/mm3 (0.0-0.8) 05/24/22 18:39 Eos # (Auto) 0.0 K/mm3 (0.0-0.4) 05/24/22 18:39 Baso # (Auto) 0.0 K/mm3 (0.0-0.1) 05/24/22 18:39 Seg Neutrophils % 65.8 % (40.0-70.0) 05/24/22 18:39 Seg Neutrophils # 3.8 K/mm3 (1.8-7.7) 05/24/22 18:39 PT 14.0 Sec. (12.2-14.9) 05/24/22 18:39 INR 0.95 (0.87-1.13) 05/24/22 18:39 APTT 32.1 Sec. (24.2-36.6) 05/24/22 18:39 Sodium 135 mmol/L (137-145) L 05/24/22 18:39 Potassium 5.9 mmol/L (3.6-5.0) H 05/24/22 18:39 Chloride 97.1 mmol/L (98-107) L 05/24/22 18:39 Carbon Dioxide 25 mmol/L (22-30) 05/24/22 18:39 Anion Gap 19 mmol/L 05/24/22 18:39 BUN 15 mg/dL (9-20) 05/24/22 18:39 Creatinine 0.6 mg/dL (0.8-1.3) L 05/24/22 18:39 Estimated GFR > 60 ml/min 05/24/22 18:39 BUN/Creatinine Ratio 25 % 05/24/22 18:39 Glucose 271 mg/dL (75-100) H 05/24/22 18:39 POC Glucose 294 mg/dL (70-105) H 05/24/22 18:22 Lactic Acid 2.20 mmol/L (0.7-2.0) H* 05/24/22 18:39 Calcium 9.2 mg/dL (8.4-10.2) 05/24/22 18:39 Total Bilirubin 0.40 mg/dL (0.1-1.2) 05/24/22 18:39 AST 104 units/L (5-40) H 05/24/22 18:39 ALT 94 units/L (7-56) H 05/24/22 18:39 Alkaline Phosphatase 209 units/L (35-129) H 05/24/22 18:39 Ammonia 108.0 umol/L (25-60) H 05/24/22 18:39 Troponin T < 0.010 ng/mL (0.00-0.029) 05/24/22 18:39 Total Protein 8.3 g/dL (6.3-8.2) H 05/24/22 18:39 Albumin 4.8 g/dL (3.9-5) 05/24/22 18:39 Albumin/Globulin Ratio 1.4 % 05/24/22 18:39 - Imaging and Cardiology Chest x-ray: report reviewed Assessment and Plan VTE prophylaxis?: Mechanical Plan of care discussed with patient/family: Yes - Patient Problems (1) Acute respiratory failure with hypoxia Status: Acute Plan to address problem: Admit the patient to the medical telemetry. NPO. Patient is on BiPAP. DuoNeb via nebulizer every 4 hours. Albuterol via nebulizer every 4 hours. Patient is DNR. Consult pulmonary if needed. Prognosis is poor (2) Bilateral pneumonia Status: Acute Qualifiers: Pneumonia type: due to unspecified organism Lung location: unspecified part of lung Qualified Code(s): J18.9 - Pneumonia, unspecified organism Plan to address problem: Patient is on BiPAP. DuoNeb by nebulizer every 4 hours. Rocephin 2 g IV daily. Zithromax to 50 mg p.o. daily. Blood cultures sputum culture. Recheck CBC BMP in the morning (3) CVA (cerebral vascular accident) Status: Acute Plan to address problem: Stable. Continue current medication. (4) EtOH dependence Status: Acute Plan to address problem: We counseled the patient regarding quit drinking. We will put the patient on thiamine folic acid and banana bag IV daily (5) Hepatic encephalopathy Status: Acute Plan to address problem: Normal saline at the rate of 100 cc/h. Lactulose 20 g p.o. every 4-6 hours. We will recheck the ammonia in the morning and CMP. Consult GI if needed (6) Hyperkalemia Status: Acute Plan to address problem: Calcium gluconate 1 g x 1 dose. Kayexalate 30 g p.o. x1 dose. Normal saline at the rate of 100 cc/h. We will recheck the BMP in the morning we will discontinue the losartan (7) Seizure disorder Status: Chronic Plan to address problem: Is stable. Continue the home medication (8) Lactic acidosis Status: Acute Plan to address problem: Normal saline at the rate drip 100 cc/h. Rocephin 2 g IV daily. Zithromax to 50 mg p.o. daily. We will recheck the lactic acid in 4 hours (9) DVT prophylaxis Status: Acute Plan to address problem: SCD for DVT prophylaxis. Pepcid 20 mg IV every 12 hours for GI prophylaxis. Patient is a DNR
[2022-05-24] MEDS ORDERED: CALC GLUCONATE 1GM/NS 100 ML 1 GM/100 ML BAG IV ONE (23:00)
[2022-05-24] MEDS: cefTRIAXone/NS 2 GM/100 ML 2 GM/100 ML BAG IV SCH (23:30)
[2022-05-25 04:21] LABS: Eosinophils % (Auto) 0.2 % (0.0-4.3); Hematocrit 40.4 % (35.5-45.6); Hemoglobin 13.2 gm/dl (11.8-15.2); Mean Corpuscular HGB Conc 33 % (32-34); Mean Corpuscular Volume 94 fl (84-94); Monocytes % (Auto) 4.7 % (0.0-7.3)
[2022-05-25 04:24] LABS: Alanine Aminotransferase 80 units/L (7-56); Albumin 3.7 g/dL (3.9-5); BUN/Creatinine Ratio 19; Blood Urea Nitrogen 26 mg/dL (9-20); Hemolysis Index 120; Platelet Count 119 K/mm3 (140-440)
[2022-05-25 06:15] LABS: Band Neutrophils # (Manual) 0.7 K/mm3; Basophils % (Manual) 0 % (0.0-1.8); Total Cells Counted 100
[2022-05-25 06:17] LABS: Anisocytosis 1+; Giant Platelets Few; Hypochromasia 1+; Large Platelets 1+; Macrocytosis Few; Ovalocytes Few; Platelet Estimate Consistent w Auto; Tear Drop Cells Few
[2022-05-25] MEDS: IPRATROPIUM/ALBUTEROL SULFATE 3 ML AMPUL.NEB IH SCH ×4 (06:34→20:25)
--- NOTE | 2022-05-25 06:44 | Cat Scan Report ---
CT HEAD WITHOUT CONTRAST INDICATION / CLINICAL INFORMATION: Altered Mental Status. TECHNIQUE: All CT scans at this location are performed using CT dose reduction for ALARA by means of automated exposure control. COMPARISON: 09/15/2018 CT brain FINDINGS: CEREBRAL/CEREBELLAR PARENCHYMA: Mild generalized cerebral cortical and cerebellar atrophy. Stable chr onic bilateral anteroinferior frontal lobe encephalomalacia, larger on the left. No CT evidence for a n acute or subacute territorial infarct. HEMORRHAGE: No acute intra-axial hemorrhage or extra-axial fluid collection. MASS: No mass or mass effect. VENTRICULAR SYSTEM: Normal in size and morphology for the patient's age. ORBITS: No acute process. SOFT TISSUES/SKULL: No scalp hematoma or skull fracture. PARANASAL SINUSES/MASTOID AIR CELLS: Normal as visualized. IMPRESSION: 1. No acute intracranial process. 2. Stable left greater than right inferior frontal lobe encephalomalacia. Signer Name: Santos Ashraf MD Signed: 05/25/2022 6:39 AM Workstation Name: [id number]
[2022-05-25] MEDS ORDERED: MIDODRINE 10 MG TAB PO SCH (08:30)
[2022-05-25] MEDS ORDERED: SODIUM CHLORIDE 0.9% 500 ML 500 ML IV SCH (09:00)
[2022-05-25] MEDS: carvediloL 12.5 MG TAB PO SCH ×2 (09:45→22:22)
[2022-05-25] MEDS: levETIRAcetam 500 MG TAB PO SCH ×2 (09:46→22:22)
[2022-05-25] MEDS ORDERED: amLODIPine 10 MG TAB PO SCH (10:00)
[2022-05-25] MEDS ORDERED: THIAMINE 100 MG TAB PO SCH (10:00)
[2022-05-25] MEDS ORDERED: AZITHROMYCIN 250 MG TAB PO SCH (10:00)
[2022-05-25] MEDS ORDERED: FOLIC ACID 1 MG TAB PO SCH (10:00)
[2022-05-25] MEDS: FAMOTIDINE 20 MG/2 ML INJ IV SCH ×2 (10:13→22:22)
[2022-05-25] MEDS: SODIUM CHLORIDE 0.9% 1000 ML 1,000 ML IV SCH (10:14)
--- NOTE | 2022-05-25 10:18 | Progress Note ---
Assessment and Plan Assessment and plan: VTE prophylaxis?: Mechanical Plan of care discussed with patient/family: Yes - Patient Problems --Acute respiratory failure with hypoxia Admit the patient to the medical telemetry. NPO. Patient is on BiPAP. DuoNeb via nebulizer every 4 hours. Albuterol via nebulizer every 4 hours. Patient is DNR. Consult pulmonary if needed. Prognosis is poor --Bilateral pneumonia Patient is on BiPAP. DuoNeb by nebulizer every 4 hours. Rocephin 2 g IV daily. Zithromax to 50 mg p.o. daily. Blood cultures sputum culture. Recheck CBC BMP in the morning -- CVA (cerebral vascular accident) Stable. Continue current medication. -- EtOH dependence We counseled the patient regarding quit drinking. We will put the patient on thiamine folic acid and banana bag IV daily -- Hepatic encephalopathy Normal saline at the rate of 100 cc/h. Lactulose 20 g p.o. every 4-6 hours. We will recheck the ammonia in the morning and CMP. Consult GI if needed --Hyperkalemia Calcium gluconate 1 g x 1 dose. Kayexalate 30 g p.o. x1 dose. Normal saline at the rate of 100 cc/h. We will recheck the BMP in the morning we will discontinue the losartan -- Seizure disorder Is stable. Continue the home medication -- Lactic acidosis Normal saline at the rate drip 100 cc/h. Rocephin 2 g IV daily. Zithromax to 50 mg p.o. daily. We will recheck the lactic acid in 4 hours -- DVT prophylaxis SCD for DVT prophylaxis. Pepcid 20 mg IV every 12 hours for GI prophylaxis. Patient is a DNR Closely monitor the patient and adjust the management as needed Plan of care reviewed with the patient and the family member at the bedside I also discussed with patient's nurse History Interval history: Seen and examined the patient at the bedside Patient's chart and medications reviewed Patient's caregiver and sister is at the bedside patient is hypotensive Chronically ill looking cachectic DNR status Hospitalist Physical - Constitutional Vitals: Temp Pulse Resp BP Pulse Ox 98.2 F 83 20 63/38 89 05/25/22 06:46 05/25/22 06:38 05/25/22 06:38 05/25/22 06:38 05/25/22 06:38 General appearance: Present: no acute distress, well-nourished, other (Chronically ill looking) - EENT Eyes: Present: PERRL, EOM intact - Neck Neck: Present: supple, normal ROM - Respiratory Respiratory effort: normal Respiratory: bilateral: diminished, negative: rales, rhonchi, wheezing - Cardiovascular Rhythm: regular Heart Sounds: Present: S1 & S2 - Extremities Extremities: no ischemia, No edema - Abdominal General gastrointestinal: soft, non-tender, non-distended, normal bowel sounds, other (PEG tube in place) - Integumentary Integumentary: Present: clear, warm - Psychiatric Psychiatric: appropriate mood/affect, cooperative - Neurologic Neurologic: moves all extremities HEART Score - HEART Score Troponin: Troponin T < 0.010 ng/mL (0.00-0.029) 05/24/22 18:39 Results - Labs CBC & Chem 7: 05/25/22 03:44 05/25/22 03:44 Labs: Laboratory Last Values WBC 2.3 K/mm3 (4.5-11.0) L 05/25/22 03:44 RBC 4.30 M/mm3 (3.65-5.03) 05/25/22 03:44 Hgb 13.2 gm/dl (11.8-15.2) 05/25/22 03:44 Hct 40.4 % (35.5-45.6) D 05/25/22 03:44 MCV 94 fl (84-94) 05/25/22 03:44 MCH 31 pg (28-32) 05/25/22 03:44 MCHC 33 % (32-34) 05/25/22 03:44 RDW 20.0 % (13.2-15.2) H 05/25/22 03:44 Plt Count 119 K/mm3 (140-440) L 05/25/22 03:44 Lymph % (Auto) 31.1 % (13.4-35.0) 05/24/22 18:39 [place] % (Auto) 4.7 % (0.0-7.3) 05/25/22 03:44 Eos % (Auto) 0.2 % (0.0-4.3) 05/25/22 03:44 Baso % (Auto) 0.8 % (0.0-1.8) 05/24/22 18:39 Lymph # (Auto) 1.8 K/mm3 (1.2-5.4) 05/24/22 18:39 [place] # (Auto) 0.1 K/mm3 (0.0-0.8) 05/24/22 18:39 Eos # (Auto) 0.0 K/mm3 (0.0-0.4) 05/24/22 18:39 Baso # (Auto) 0.0 K/mm3 (0.0-0.1) 05/24/22 18:39 Add Manual Diff Complete 05/25/22 03:44 Total Counted 100 05/25/22 03:44 Seg Neutrophils % 69.0 % (40.0-70.0) 05/25/22 03:44 Seg Neuts % (Manual) 35.0 % (40.0-70.0) L 05/25/22 03:44 Band Neutrophils % 32.0 % 05/25/22 03:44 Lymphocytes % (Manual) 23.0 % (13.4-35.0) 05/25/22 03:44 Reactive Lymphs % (Man) 0 % 05/25/22 03:44 Monocytes % (Manual) 4.0 % (0.0-7.3) 05/25/22 03:44 Eosinophils % (Manual) 2.0 % (0.0-4.3) 05/25/22 03:44 Basophils % (Manual) 0 % (0.0-1.8) 05/25/22 03:44 Metamyelocytes % 3.0 % 05/25/22 03:44 Myelocytes % 1.0 % 05/25/22 03:44 Promyelocytes % 0 % 05/25/22 03:44 Blast Cells % 0 % 05/25/22 03:44 Nucleated RBC % 6.0 % (0.0-0.9) H 05/25/22 03:44 Seg Neutrophils # 3.8 K/mm3 (1.8-7.7) 05/24/22 18:39 Seg Neutrophils # Man 0.8 K/mm3 (1.8-7.7) L 05/25/22 03:44 Band Neutrophils # 0.7 K/mm3 05/25/22 03:44 Lymphocytes # (Manual) 0.5 K/mm3 (1.2-5.4) L 05/25/22 03:44 Abs React Lymphs (Man) 0.0 K/mm3 05/25/22 03:44 Monocytes # (Manual) 0.1 K/mm3 (0.0-0.8) 05/25/22 03:44 Eosinophils # (Manual) 0.0 K/mm3 (0.0-0.4) 05/25/22 03:44 Basophils # (Manual) 0.0 K/mm3 (0.0-0.1) 05/25/22 03:44 Metamyelocytes # 0.1 K/mm3 05/25/22 03:44 Myelocytes # 0.0 K/mm3 05/25/22 03:44 Promyelocytes # 0.0 K/mm3 05/25/22 03:44 Blast Cells # 0.0 K/mm3 05/25/22 03:44 WBC Morphology Not Reportable 05/25/22 03:44 Hypersegmented Neuts Not Reportable 05/25/22 03:44 Hyposegmented Neuts Not Reportable 05/25/22 03:44 Hypogranular Neuts Not Reportable 05/25/22 03:44 Smudge Cells Not Reportable 05/25/22 03:44 Toxic Granulation Not Reportable 05/25/22 03:44 Toxic Vacuolation Not Reportable 05/25/22 03:44 Dohle Bodies Not Reportable 05/25/22 03:44 Pelger-Huet Anomaly Not Reportable 05/25/22 03:44 Agustin Rods Not Reportable 05/25/22 03:44 Platelet Estimate Consistent w auto 05/25/22 03:44 Clumped Platelets Not Reportable 05/25/22 03:44 Plt Clumps, EDTA Not Reportable 05/25/22 03:44 Large Platelets 1+ 05/25/22 03:44 Giant Platelets Few 05/25/22 03:44 Platelet Satelliting Not Reportable 05/25/22 03:44 Plt Morphology Comment Not Reportable 05/25/22 03:44 RBC Morphology Not Reportable 05/25/22 03:44 Dimorphic RBCs Not Reportable 05/25/22 03:44 Polychromasia Not Reportable 05/25/22 03:44 Hypochromasia 1+ 05/25/22 03:44 Poikilocytosis Not Reportable 05/25/22 03:44 Anisocytosis 1+ 05/25/22 03:44 Microcytosis Not Reportable 05/25/22 03:44 Macrocytosis Few 05/25/22 03:44 Spherocytes Not Reportable 05/25/22 03:44 Pappenheimer Bodies Not Reportable 05/25/22 03:44 Sickle Cells Not Reportable 05/25/22 03:44 Target Cells Not Reportable 05/25/22 03:44 Tear Drop Cells Few 05/25/22 03:44 Ovalocytes Few 05/25/22 03:44 Helmet Cells Not Reportable 05/25/22 03:44 [place] Bodies Not Reportable 05/25/22 03:44 [place] Rings Not Reportable 05/25/22 03:44 Amos Cells Not Reportable 05/25/22 03:44 Bite Cells Not Reportable 05/25/22 03:44 Crenated Cell Not Reportable 05/25/22 03:44 Elliptocytes Few 05/25/22 03:44 Acanthocytes (Spur) Not Reportable 05/25/22 03:44 Rouleaux Not Reportable 05/25/22 03:44 Hemoglobin C Crystals Not Reportable 05/25/22 03:44 Schistocytes Not Reportable 05/25/22 03:44 Malaria parasites Not Reportable 05/25/22 03:44 John Bodies Not Reportable 05/25/22 03:44 Hem Pathologist Commnt No 05/25/22 03:44 PT 14.0 Sec. (12.2-14.9) 05/24/22 18:39 INR 0.95 (0.87-1.13) 05/24/22 18:39 APTT 32.1 Sec. (24.2-36.6) 05/24/22 18:39 Sodium 140 mmol/L (137-145) 05/25/22 03:44 Potassium 5.4 mmol/L (3.6-5.0) H 05/25/22 03:44 Chloride 101.5 mmol/L (98-107) 05/25/22 03:44 Carbon Dioxide 24 mmol/L (22-30) 05/25/22 03:44 Anion Gap 20 mmol/L 05/25/22 03:44 BUN 26 mg/dL (9-20) H 05/25/22 03:44 Creatinine 1.4 mg/dL (0.8-1.3) H D 05/25/22 03:44 Estimated GFR > 60 ml/min 05/25/22 03:44 BUN/Creatinine Ratio 19 % 05/25/22 03:44 Glucose 96 mg/dL (75-100) 05/25/22 03:44 POC Glucose 294 mg/dL (70-105) H 05/24/22 18:22 Lactic Acid 2.20 mmol/L (0.7-2.0) H* 05/24/22 18:39 Calcium 9.0 mg/dL (8.4-10.2) 05/25/22 03:44 Total Bilirubin 0.40 mg/dL (0.1-1.2) 05/25/22 03:44 AST 103 units/L (5-40) H 05/25/22 03:44 ALT 80 units/L (7-56) H 05/25/22 03:44 Alkaline Phosphatase 123 units/L (35-129) 05/25/22 03:44 Ammonia 108.0 umol/L (25-60) H 05/24/22 18:39 Troponin T < 0.010 ng/mL (0.00-0.029) 05/24/22 18:39 Total Protein 6.7 g/dL (6.3-8.2) 05/25/22 03:44 Albumin 3.7 g/dL (3.9-5) L 05/25/22 03:44 Albumin/Globulin Ratio 1.2 % 05/25/22 03:44 Microbiology: Microbiology 05/24/22 18:39 Peripheral/Venous Blood Culture - Preliminary Culture in Progress 05/24/22 18:39 Peripheral/Venous Blood Culture - Preliminary Culture in Progress Active Medications - Current Medications Current Medications: Generic Name Dose Route Start Last Admin Trade Name Freq PRN Reason Stop Dose Admin Acetaminophen 650 mg 05/24/22 22:45 Acetaminophen 325 Mg Tab PO Q4H PRN Pain MILD(1-3)/Fever >100.5/KAM Albuterol 2.5 mg 05/24/22 22:45 Albuterol 2.5 Mg/3 Ml Nebu IH Q3HRT PRN Shortness Of Breath Albuterol/Ipratropium 1 ampul 05/25/22 02:00 05/25/22 08:49 Ipratropium/Albuterol Sulfate 3 Ml Ampul.Neb IH 1 ampul Q6HRT MARYELLEN Administration Amlodipine Besylate 10 mg 05/25/22 10:00 05/25/22 09:45 Amlodipine 10 Mg Tab PO Not Given DAILY MARYELLEN Carvedilol 12.5 mg 05/25/22 10:00 05/25/22 09:45 Carvedilol 12.5 Mg Tab PO Not Given BID MARYELLEN Famotidine 20 mg 05/25/22 10:00 05/25/22 10:13 Famotidine 20 Mg/2 Ml Inj IV 20 mg BID MARYELLEN Administration Folic Acid 1 mg 05/25/22 10:00 05/25/22 09:45 Folic Acid 1 Mg Tab PO 1 mg DAILY MARYELLEN Administration Sodium Chloride 1,000 mls @ 100 mls/hr 05/24/22 22:45 05/25/22 10:14 Nacl 0.9% 1000 Ml IV 100 mls/hr DIRECT MARYELLEN Administration Ceftriaxone Sodium 2 gm in 100 mls @ 200 mls/hr 05/24/22 23:00 05/24/22 23:30 Rocephin/Ns 2 Gm/100 Ml IV 200 mls/hr Q24H MARYELLEN Administration Protocol Sodium Chloride 500 mls @ 999 mls/hr 05/25/22 09:00 05/25/22 09:10 Nacl 0.9% 500 Ml IV 05/25/22 12:00 999 mls/hr ONCE@0900 MARYELLEN Administration Azithromycin 500 mg in 250 mls @ 250 mls/hr 05/26/22 10:00 Zithromax/Ns IV Q24H MARYELLEN Protocol Lactulose 20 gm 05/24/22 22:50 Lactulose 20 Gm/30 Ml Oral Liqd PO Q6H PRN Constipation Levetiracetam 1,000 mg 05/25/22 10:00 05/25/22 09:46 Levetiracetam 500 Mg Tab PO 1,000 mg BID MARYELLEN Administration Midodrine 10 mg 05/25/22 08:30 05/25/22 09:10 Midodrine 10 Mg Tab PO 05/25/22 10:30 10 mg ONCE@0830 MARYELLEN Administration Morphine Sulfate 2 mg 05/24/22 22:45 Morphine 2 Mg/1 Ml Inj IV Q4H PRN Pain, Moderate (4-6) Morphine Sulfate 4 mg 05/24/22 22:45 Morphine 4 Mg/1 Ml Inj IV Q4H PRN Pain , Severe (7-10) Ondansetron HCl 4 mg 05/24/22 22:45 Ondansetron 4 Mg/2 Ml Inj IV Q8H PRN Nausea And Vomiting Sertraline HCl 50 mg 05/25/22 22:00 Sertraline 50 Mg Tab PO QHS MARYELLEN Sodium Chloride 10 ml 05/25/22 10:00 05/25/22 09:46 Sodium Chloride 0.9% 10 Ml Flush Syringe IV 10 ml BID MARYELLEN Administration Sodium Chloride 10 ml 05/24/22 22:45 Sodium Chloride 0.9% 10 Ml Flush Syringe IV PRN PRN LINE FLUSH Thiamine HCl 100 mg 05/25/22 10:00 05/25/22 09:45 Thiamine 100 Mg Tab PO 100 mg QDAY MARYELLEN Administration
--- NOTE | 2022-05-25 10:55 | Electrocardiograph Report ---
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
[2022-05-25] MEDS ORDERED: SIMPLE SYRUP 15 ML FEEDTUBE PRN ×2 (11:00)
[2022-05-25] MEDS ORDERED: LIPASE 10,500/PROTEASE 25,000/AMYLASE 43,750 (UNITS) DR CAP FEEDTUBE PRN (11:00)
[2022-05-25] MEDS ORDERED: SODIUM POLYSTYRENE 15 GM/60 ML ORAL LIQD PO ONE (11:40)
[2022-05-25] MEDS: MIDODRINE 10 MG TAB PO SCH ×2 (14:06→17:12)
[2022-05-25] MEDS ORDERED: SERTRALINE 50 MG TAB PO SCH (22:00)
[2022-05-25] MEDS: cefTRIAXone/NS 2 GM/100 ML 2 GM/100 ML BAG IV SCH (22:26)
[2022-05-26 02:08] VITALS: BP 73/41
[2022-05-26] MEDS: IPRATROPIUM/ALBUTEROL SULFATE 3 ML AMPUL.NEB IH SCH (02:12)
[2022-05-26] MEDS: SODIUM CHLORIDE 0.9% 1000 ML 1,000 ML IV SCH (03:19)
--- NOTE | 2022-05-26 04:17 | Death Note ---
Note Date of : 05/26/22 Time of : 03:48 Time Pronounced: 03:48 - Preliminary Cause of (problem) (1) Acute respiratory failure with hypoxia Preliminary cause of (2) Bilateral pneumonia Qualifiers: Pneumonia type: due to unspecified organism Lung location: unspecified part of lung Qualified Code(s): J18.9 - Pneumonia, unspecified organism Preliminary cause of Called by the nurse that the patient is not breathing. I examined the patient. Patient is pulseless breathless. Patient has no blood pressure and, no reflex. Patient at 3:48 AM on 05/26/22 due to cardiopulmonary arrest, esophageal cancer with mets. Bilateral pneumonia. Prognosis is poor. Family is notified. (3) CVA (cerebral vascular accident) Preliminary cause of (4) EtOH dependence Preliminary cause of (5) Hepatic encephalopathy Preliminary cause of (6) Hyperkalemia Preliminary cause of (7) Seizure disorder Preliminary cause of (8) Lactic acidosis Preliminary cause of (9) DVT prophylaxis Preliminary cause of
[2022-05-26] MEDS ORDERED: AZITHROMYCIN/NS 500 MG/250 ML 500 MG/250 ML BAG IV SCH (10:00)
[2022-05-26] MEDS ORDERED: AZITHROMYCIN 250 MG TAB PO SCH (10:00)
--- NOTE | 2022-05-30 10:37 | Death Summary ---
Summary - Providers Date of service: 05/26/22 Consults: 05/25/22 10:21 Consult to Dietitian/Nutrition [CONS] Routine Physician Instructions: Assess nutrtn needs, initiate, modify, manage TF Reason For Exam: Reason for Consult: Write/Manage Tube Feeding Reason for Consult: Write/Manage Tube Feeding Attending: DANIEL ORTEGA - summary Date of admission: 05/24/22 22:45 Date of : 05/26/22 (03:58) Reason for admission: Acute respiratory failure with hypoxia Significant findings: 61-year-old male patient with past medical history of esophageal cancer with mets, history of CVA with residual weakness, seizure disorder, toxic metabolic encephalopathy was admitted through emergency room with acute respiratory failure with hypoxia as well as altered level of consciousness/toxic metabolic encephalopathy, Patient has very poor prognosis and is DNR status but patient and family Patient was being symptomatically managed with appropriate treatment however on 05/26/2022 it application architect hours patient had acute hypoxic respiratory failure/respiratory arrest and cardiac arrest, Covering hospitalist Dr. Fernández has evaluated the patient, as patient was DNR no resuscitation was done and patient was pronounced by Dr. Fenrández on 05/26/2022 at 03:58 ; and he also informed the family I was not present when the patient , details of this summary were obtained from the patient's medical chart. Date and time of : 05/26/2022 at 03:58. Cause of ; acute respiratory failure with hypoxia Cardiopulmonary arrest Esophageal cancer with metastasis Toxic metabolic encephalopathy DNR status status Bilateral pneumonia Seizure disorder Final diagnosis: --Acute respiratory failure with hypoxia Patient --Cardiopulmonary arrest --Esophageal cancer with mets; Very poor prognosis continue supportive care --Toxic metabolic encephalopathy[hepatic and coagulopathy] --Bilateral pneumonia -- CVA (cerebral vascular accident) with residual deficit -- EtOH dependence - Hepatic encephalopathy --Hyperkalemia -- Seizure disorder -- Lactic acidosis -- DVT prophylaxis --DNR status: Very poor prognosis Patient on 05/26/2022 at 03:58 Total time spent 35 minutes Pertinent studies: CT head without contrast no acute abnormality noted stable left greater than right inferior frontal lobe encephalomalacia Chest x-ray suspected bilateral pneumonia Disposition: Patient
== END 2022-05-26 07:25 | DRG 871 ==
LOC: ED 17:52 → 4A 22:45
PROVIDERS: ADMIT Hospitalist; ATTEND Internal Medicine
PROC: 5A09357 Assistance with Respiratory Ventilation, Less than 24 Consecutive Hours, Continuous Positive Airway Pressure (ICD-10-PCS; principal; 2022-05-24)
PROC: 5A0935A Assistance with Respiratory Ventilation, Less than 24 Consecutive Hours, High Flow/Velocity Cannula (ICD-10-PCS; 2022-05-24)
DX: A41.9 Sepsis, unspecified organism (principal); J96.01 Acute respiratory failure with hypoxia; J18.9 Pneumonia, unspecified organism; G92.8 Other toxic encephalopathy; E87.5 Hyperkalemia; E87.2 Acidosis; G40.909 Epilepsy, unspecified, not intractable, without status epilepticus; I46.9 Cardiac arrest, cause unspecified; I10 Essential (primary) hypertension; F10.20 Alcohol dependence, uncomplicated; K72.90 Hepatic failure, unspecified without coma; C15.9 Malignant neoplasm of esophagus, unspecified; C79.9 Secondary malignant neoplasm of unspecified site; Z66 Do not resuscitate
CPT/HCPCS: 36415; 70450; 71045; 80053; 82140; 82962; 84484; 85007; 85025; 85610; 85730; 87040; 87641; 93005; 94640; 94644; 94760; 96365; 96366; 96375; 99291; G0378; J3490; J0610; J0696; J1956; J2930; J3411; J7030; J7040